=== PATIENT | male | born 1940 | race Caucasian/White ===

== ENCOUNTER → 2017-04-03 | Outpatient (CLI) | payer OTHER ==
[~2017-04-03] MED LIST: ASPI81CH PO; ATOR80 PO; CEPH500 PO; CHOL10002 PO; Catapres0.1 MG PO; Cephalexin500 MG PO; DIPATR PO; Dazidox10 MG; FISH1000 PO; FLUSAL2505 INH; Ginkgo Biloba60 M1 PO; ISOMON20 PO; LISI20 PO; Lomotil Tablet1 EACH PO; MELO7.5 PO; METO50ER PO; METO5A PO; NEBI10 PO; NITR.4SL SL; Neurontin 100100 MG PO; OXYC10TA19 PO; Omeprazole20 M1 PO; PROM25 PO; RANO500T PO; Vitamin B-121000 MCG PO; XARELTO15 MG PO
== END ==
LOC: LAB SRC 09:56
DX: R30.0 Dysuria (principal); R31.9 Hematuria, unspecified
CPT/HCPCS: 87086

== ENCOUNTER → 2017-12-10 | Outpatient (CLI) | payer OTHER | END | disposition home or self-care (01) | LOC: PLD 13:52 → LAB SHORT 13:52 | DX: D22.4 Melanocytic nevi of scalp and neck (principal) | CPT/HCPCS: 88305 ==

== ENCOUNTER → 2018-06-13 | Outpatient (CLI) | payer OTHER ==
[~2018-06-13] MED LIST changes: +Kristalose20 GM PO
== END | disposition home or self-care (01) ==
LOC: LAB SHORT 15:28 → LAB 15:28
DX: Z20.89 Contact with and (suspected) exposure to other communicable diseases (principal)
CPT/HCPCS: 87493

== ENCOUNTER 2018-11-20 16:31 | Emergency (ER) | payer OTHER ==
[~2018-11-20] VITALS: Ht 177.8 cm; Wt 110.7 kg
== END 2018-11-20 18:21 | disposition left against medical advice (07) ==
LOC: ER 16:31
DX: Z53.21 Procedure and treatment not carried out due to patient leaving prior to being seen by health care provider (principal)
CPT/HCPCS: 70450

== ENCOUNTER 2019-02-26 09:04 | Day surgery (SDC) | payer OTHER ==
--- NOTE | 2019-02-26 10:43 | NUR ---
PT TO STEP FROM RADIOLOGY. DENIES SOB. LUNG SOUNDS CLEAR. BAND AID TO BIOPSY SITE D/I. C/O INTERNAL PAIN FROM BIOPSY, PAIN LEVEL 5/10. PT STATES WAS TOLD BY RADIOLOGIST THAT HE COULD TAKE HOME PAIN MEDS AND DID SO. STATES HE TAKE IT FOR BACK PAIN. AT BEDSIDE.
--- NOTE | 2019-02-26 11:04 | NUR ---
NO CHANGE IN BIOPSY SITE. STATES PAIN IMPROVING. REPORT TO DIDIER MONTES RN.
--- NOTE | 2019-02-26 11:43 | NUR ---
RESUMED CARE OF PT. BAND AID D/I. DENIES SOB.
--- NOTE | 2019-02-26 12:00 | NUR ---
WRITTEN AND VERBAL D/C INSTRUCTIONS GIVEN TO PT WITH STATED UNDERSTANDING.
--- NOTE | 2019-02-26 12:23 | NUR ---
TO RADIOLOGY FOR CXR.
== END 2019-02-26 23:03 | disposition home or self-care (01) ==
LOC: CT 09:04
DX: C34.92 Malignant neoplasm of unspecified part of left bronchus or lung (principal); I25.10 Atherosclerotic heart disease of native coronary artery without angina pectoris; E78.00 Pure hypercholesterolemia, unspecified; I10 Essential (primary) hypertension; E66.9 Obesity, unspecified; Z68.34 Body mass index [BMI] 34.0-34.9, adult; Z87.891 Personal history of nicotine dependence; Z86.711 Personal history of pulmonary embolism; Z79.01 Long term (current) use of anticoagulants; Z79.82 Long term (current) use of aspirin; Z79.899 Other long term (current) drug therapy; Z95.1 Presence of aortocoronary bypass graft
CPT/HCPCS: 32405; 71045; 77012; 88305; 88341; 88342

== ENCOUNTER 2019-04-09 13:06 | Emergency (ER) | payer OTHER ==
[~2019-04-09] VITALS: Ht 188 cm; Wt 105.2 kg
== END 2019-04-09 17:37 | disposition home or self-care (01) ==
LOC: ER 13:06
DX: S61.300A Unspecified open wound of right index finger with damage to nail, initial encounter (principal); S00.531A Contusion of lip, initial encounter; W01.198A Fall on same level from slipping, tripping and stumbling with subsequent striking against other object, initial encounter; Z79.899 Other long term (current) drug therapy; Z79.891 Long term (current) use of opiate analgesic; Z79.82 Long term (current) use of aspirin; I10 Essential (primary) hypertension; I25.10 Atherosclerotic heart disease of native coronary artery without angina pectoris; Z87.891 Personal history of nicotine dependence; Z85.118 Personal history of other malignant neoplasm of bronchus and lung
CPT/HCPCS: 29130; 70450; 71101; 99284-25

== ENCOUNTER 2019-08-17 16:39 | Inpatient (IN) | payer OTHER ==
[~2019-08-17] VITALS: Ht 177.8 cm; Wt 107.1 kg
[~2019-08-17 16:39] MED LIST changes: -ASPI81CH PO; +Aspirin EC81 MG PO; -FISH1000 PO; +Fish Oil Conc1000 MG PO; -XARELTO15 MG PO; +XARELTO20 MG PO
[2019-08-17 18:22] LABS: BASOPHILS ABSOLUTE AUTO 0.04 K/mm3 (0.00-0.23); BASOPHILS PERCENT AUTO 1 % (0-2); EOSINOPHILS ABSOLUTE AUTO 0.35 K/mm3 (0.00-0.68); EOSINOPHILS PERCENT AUTO 5 % (0-6); Hematocrit 38.3 % (37.0-53.0); Hemoglobin 12.5 g/dL (13.5-17.5); IMMATURE GRAN ABSOLUTE AUTO 0.02 K/mm3 (0.00-0.10); IMMATURE GRAN PERCENT AUTO 0 % (0-1); LYMPHOCYTES ABSOLUTE AUTO 1.53 K/mm3 (0.84-5.20); LYMPHOCYTES PERCENT AUTO 22 % (21-46); MONOCYTES ABSOLUTE AUTO 0.53 K/mm3 (0.16-1.47); MONOCYTES PERCENT AUTO 8 % (4-13); Mean Corpuscular HGB 32.9 pg (26.0-34.0); Mean Corpuscular HGB Conc 32.6 g/dL (31.5-36.5); Mean Corpuscular Volume 101 fL (80-100); Mean Platelet Volume 10.6 fL (9.1-12.4); NEUTROPHILS ABSOLUTE AUTO 4.41 K/mm3 (1.96-9.15); NEUTROPHILS PERCENT AUTO 64 % (41-73); Platelet Count 167 K/mm3 (150-400); RDW Coefficient Variation 12.9 % (11.7-14.2); RDW Standard Deviation 47.4 fL (35.1-46.3); White Blood Cell Count 6.88 K/mm3 (4.00-11.30)
[2019-08-17 18:31] LABS: Anion Gap 8 mmol/L (6-16); Blood Urea Nitrogen 16 mg/dL (8-24); Bun/Creatinine Ratio 13.9 (12.0-20.0); CO2, Blood 22 mmol/L (21-32); Calcium, Blood 8.6 mg/dL (8.5-10.1); Chloride, Blood 111 mmol/L (98-108); Creatinine, Blood 1.15 mg/dL (0.60-1.20); Glomerular Filtration Rate >60 (60-); Glucose, Blood 97 mg/dL (70-99); Potassium, Blood 4.3 mmol/L (3.5-5.5); Sodium, Blood 141 mmol/L (136-145)
[2019-08-17] MEDS ORDERED: TOPI50 PO (22:28)
[2019-08-17] MEDS ORDERED: METO50ER PO (22:29)
[2019-08-17] MEDS ORDERED: Cymbalta20 MG PT (22:29)
[2019-08-17] MEDS ORDERED: METO10 PO (22:30)
[2019-08-18 04:20] LABS: BASOPHILS ABSOLUTE AUTO 0.03 K/mm3 (0.00-0.23); BASOPHILS PERCENT AUTO 0 % (0-2); EOSINOPHILS ABSOLUTE AUTO 0.11 K/mm3 (0.00-0.68); EOSINOPHILS PERCENT AUTO 2 % (0-6); Hematocrit 35.7 % (37.0-53.0); Hemoglobin 11.9 g/dL (13.5-17.5); IMMATURE GRAN ABSOLUTE AUTO 0.02 K/mm3 (0.00-0.10); IMMATURE GRAN PERCENT AUTO 0 % (0-1); LYMPHOCYTES ABSOLUTE AUTO 1.19 K/mm3 (0.84-5.20); LYMPHOCYTES PERCENT AUTO 16 % (21-46); MONOCYTES ABSOLUTE AUTO 0.64 K/mm3 (0.16-1.47); MONOCYTES PERCENT AUTO 8 % (4-13); Mean Corpuscular HGB 33.1 pg (26.0-34.0); Mean Corpuscular HGB Conc 33.3 g/dL (31.5-36.5); Mean Corpuscular Volume 99 fL (80-100); Mean Platelet Volume 9.8 fL (9.1-12.4); NEUTROPHILS ABSOLUTE AUTO 5.59 K/mm3 (1.96-9.15); NEUTROPHILS PERCENT AUTO 74 % (41-73); Platelet Count 137 K/mm3 (150-400); RDW Coefficient Variation 12.7 % (11.7-14.2); RDW Standard Deviation 46.5 fL (35.1-46.3); White Blood Cell Count 7.58 K/mm3 (4.00-11.30)
[2019-08-18 04:34] LABS: International Normalized Ratio 1.16; Prothrombin Time Results 12.3 Sec (9.7-11.5)
[2019-08-18 04:39] LABS: Alanine Aminotransfer (ALT/SGP 19 U/L (12-78); Albumin, Blood 3.1 g/dL (3.4-5.0); Albumin/Globulin Ratio 0.9 (0.8-1.8); Alk Phos 82 U/L (50-136); Anion Gap 6 mmol/L (6-16); Aspartate Aminotrans (AST/SGOT 23 U/L (12-37); Bilirubin, Total 0.7 mg/dL (0.1-1.0); Blood Urea Nitrogen 19 mg/dL (8-24); CO2, Blood 24 mmol/L (21-32); Calcium, Blood 8.2 mg/dL (8.5-10.1); Chloride, Blood 111 mmol/L (98-108); Globulin, Blood 3.3 g/dL (2.2-4.0); Glomerular Filtration Rate >60 (60-); Glucose, Blood 105 mg/dL (70-99); Magnesium, Blood 2.2 mg/dL (1.6-2.4); Sodium, Blood 141 mmol/L (136-145); Total Protein, Blood 6.4 g/dL (6.4-8.2)
--- NOTE | 2019-08-18 05:00 | NUR ---
SHIFT SUMMARY: PATIENT ARRIVED TO PCU 14 AT APPROX 2200 VIA GURNEY FROM ER. REPROT RECIEVED FROM VIOLET HAJI. PATIENT SLIDE TRANSFER TO BED D/T RECENT FALL AND INABILITY TO SEE WELL. PATIENT LEFT EYE LEGALLY BLIND PER PATIENT AND RIGHT EYE SWOLLEN SHUT. PATIENT HAS ABRASIONS NEAR RIGHT EYEBROW AND ON RIGHT CHEEK, RIGHT SIDE OF FACE VERY SWOLLEN. RIGHT SHOULDER BRUISED AND RIGHT HAND HAS SMALL ABRASIONS. PATIENT ALERT AND ORIENTED, VSS. ADMISSION COMPLETED AND PATIENT ORIENTED TO ROOM, CALL LIGHT AND HOSPITAL POLICIES. UNABLE TO TEST PUPILARY RESPONSE IN RIGHT EYE D/T SWELLING, RIGHT ARM HAS LIMITED ROM D/T PAIN FROM FALL. RIGHT WRIST LIMITED ROM BASELINE PER PATIENT. ALL OTHER STRENGTH/PULSES/SENSATION INTACT. REPEAT CT COMPLETED AND INDICATED IMPROVEMENT THE SIZE OF THE SDH SEEMS TO BE SMALLER. ATTEMPTED TO CALL ENT CONSULT PER MD ORDERS, HOWEVER, ANSWERING SERVICE INFORMED ME THAT ENT WOULD NOT AVAILABLE FOR CONSULT UNTIL Sunday08/19/19 AND TO CALL BACK BEFORE 0600 ON 08/19/19. BED LOW AND LOCKED, CALL LIGHT WITHIN REACH AND USED APPROPRIATLY.
--- NOTE | 2019-08-18 09:55 | NUR ---
FAMILY RETURNED PT PHONE CALL. LUIS ANTONIO RELATED THAT SHE GIVES PT HIS PAIN PILLS AT HOME. SHE GAVE HIN 2 OXI BEFORE THEIR WALK. PT DOES NOT NORMALLY TAKE 2 AT ONCE. CONTINUE POT.
[2019-08-18 13:17] LABS: Hematocrit 33.4 % (37.0-53.0); Hemoglobin 10.9 g/dL (13.5-17.5)
--- NOTE | 2019-08-18 15:40 | NUR ---
TRANSFER TO 309 PT REPORT CALLED TO IRVING HAJI. PT AWAKE ALERT AND AGREEABLE TO TRANSFER. CURRENTLY HE IS TALKING TO HIS ON THE PHONE. CONTINUE POT.
--- NOTE | 2019-08-18 16:19 | NUR ---
1600 ASSUMED CARE OF PT FROM AR. REPORT GIVEN . PT CAME UP IN WC AND PUT INTO BED . NO COMPLAINTS AT THIS TIME.
[2019-08-18 16:39] LABS: Hematocrit 36.9 % (37.0-53.0); Hemoglobin 11.9 g/dL (13.5-17.5)
--- NOTE | 2019-08-18 18:00 | NUR ---
PT TRANSFERRED FROM PCU THIS SHIFT. HE IS ALERT AND ORIENTED AND ABLE TO COMMUNICATE HIS NEEDS. HE IS A ONE ASSIST TO THE COMMODE AND DUE TO THE CONDITION OF HIS HAND AND ARM HE NEEDS ASSISTANCE WITH THE URNIAL. PT HAS RESTED SINCE HIS ARRIVAL. NO ACUTE CHANGES.
--- NOTE | 2019-08-18 23:03 | NUR ---
ENT CONSULT CALLED TO ANSWERING SERVICE ON 08/18/19 AT 2301.
--- NOTE | 2019-08-19 04:31 | NUR ---
SUMMARY: PT IS A/OX4, SPECIFIES NEEDS AND INDEPENDENT IN ROOM. IVF WERE SL D/T PT EATING AND DRINKING WELL W/POSSIBLE D/C TODAY. SHE'S DENIED PAIN, SOB, ABDO DISCOMFORT AND N/V/D. DRY NAGGING COUGH PERSISTED THOUGH SO TESSALON PERLS WERE PROVIDED PRN FOR GOOD EFFECT. PT SLEPT MAJORITY OF NOCTE AND WAS ONLY UP TO USE TOILET. BREAKFAST TRAY ORDERED PER PT REQUEST. IV ABX TO BE RECIEVED ON DAY SHIFT. NO ACUTE CHANGES, VSS/AFEBRILE. WCTM AND REPORT TO DAY RN.
[2019-08-19 05:04] LABS: Hematocrit 33.3 % (37.0-53.0); Hemoglobin 11.2 g/dL (13.5-17.5)
--- NOTE | 2019-08-19 05:28 | NUR ---
SUMMARY: A/OX4, SPECIFIES NEEDS AND PLEASANT/COOPERATIVE W/CARE. PT IS BLIND IN L.EYE AND R.EYELID SWELLING IMPAIRS VISION, NATHANIEL. STAFF PLACED TELE PATCH DISTRIBUTION SUPERVISOR LIGHT TO AID EASE OF USE. HE'D PREVIOUSLY SET OFF BED ALARM D/T INABILITY TO FIND CALL LIGHT BUTTON BUT HAS HAD NO FURTHER ISSUES SINCE. HE'S 1P ASSIST TO BSC AND NEEDS URINAL ASSIST D/T R.ARM SLING. FACIAL AND R.EYE ORBITAL EDEMA, BRUISING, ABRASIONS AND DRIED BLOOD PERSIST POST FALL. ENT CX WAS CALLED TO 'S ANSWERING SERVICE FOR MAXILLARY FX AND DISPLACEMENT. HGB/HCT ARE STABLE BUT HAVE DECREASED SLIGHTLY THIS AM. NO S/S ACTIVE BLEEDING AND PT DENIES DELUNA AND DIZZYNESS. TRAMADOL RECIEVED X1 PRN FOR TOLERABLE CONTROL OF FACE, RIB AND R.ARM PAIN. HE'S NSR W/1ST DEGREE BLOCK ON TELEMETRY. NO ACUTE CHANGS, VSS/AFEBRILE. WCTM AND REPORT TO DAY RN.
--- NOTE | 2019-08-19 17:53 | NUR ---
NO ACUTE CHANGES. PTS RIGHT EYE HAS DECREASED IN SWELLING AND HE IS ABLE TO LOOK OUT OF IT. PAIN HAS BEEN CONTROLLED WELL THIS SHIFT.
--- NOTE | 2019-08-20 04:46 | NUR ---
SHIFT SUMMARY PT HAS HAD NO ACUTE CHANGES THIS SHIFT, A&O, PLEASANT & COOPERATIVE W/CARE, MEDICATED FOR RUE PAIN 2X THIS SHIFT, PT REPORTED ULTRAM NOT EFFECTIVE, PT SLEEPING AT THIS TIME, CALL LIGHT IN REACH, ALL NEEDS MET, WILL CONT TO MONITOR UNTIL REPORT GIVEN TO DAY RN.
[2019-08-20] MEDS ORDERED: ACET325 PO (14:59)
[2019-08-20] MEDS ORDERED: TRAM50 PO (15:00)
--- NOTE | 2019-08-20 15:45 | NUR ---
PT DISCHARGED THE PT AND HIS VERBALIZED UNDERSTANDING OF THE DC INSTRUCTIONS, PTS FOLLOW UP APPOINTMENTS WERE MADE PRIOR TO DC, THE PT WAS GIVEN A PRESCRIPTION FOR TRAMADOL, PT WAS GIVEN INSTRUCTIONS TO DISTILLATION OPERATOR FWW ATTATCHMENT AT [facility], THE PT WAS TRANSFERD VIA WHEELCHAIR ACCOMPANIED BY THE SN RAINEY, PT APPEARED TO BE BREATING EASILY ON RA AT THE TIME OF DC
--- NOTE | 2019-08-20 15:55 | NUR ---
STUDENT NURSE ASSESMENT THIS RN WAS PRESENT DURING THE STUDENTS AM SHIFT ASSESSMENT AND AGREE WITH THAT ASSSESSMENT
== END 2019-08-20 15:27 | disposition home health service (06) | DRG 83 ==
LOC: ER 16:39 → PCU 16:40 → MEDS 16:40 → PCU 21:41 → MEDS 08-18 15:49
PROVIDERS: Internal Medicine; Nurse Practitioner Acute Care; Student in an Organized Health Care Education/Training Program; ADMIT Internal Medicine
DX: S06.5X9A Traumatic subdural hemorrhage with loss of consciousness of unspecified duration, initial encounter (principal); S52.201A Unspecified fracture of shaft of right ulna, initial encounter for closed fracture; S52.501A Unspecified fracture of the lower end of right radius, initial encounter for closed fracture; W18.30XA Fall on same level, unspecified, initial encounter; I25.2 Old myocardial infarction; I25.10 Atherosclerotic heart disease of native coronary artery without angina pectoris; I10 Essential (primary) hypertension; Z85.118 Personal history of other malignant neoplasm of bronchus and lung; Z95.1 Presence of aortocoronary bypass graft; F32.9 Major depressive disorder, single episode, unspecified; M19.90 Unspecified osteoarthritis, unspecified site; Z87.891 Personal history of nicotine dependence; Z79.82 Long term (current) use of aspirin; Z94.5 Skin transplant status; Z86.711 Personal history of pulmonary embolism; J44.9 Chronic obstructive pulmonary disease, unspecified; Y92.9 Unspecified place or not applicable; S02.40CA Maxillary fracture, right side, initial encounter for closed fracture; G89.29 Other chronic pain; E78.00 Pure hypercholesterolemia, unspecified; H54.7 Unspecified visual loss; S46.019A Strain of muscle(s) and tendon(s) of the rotator cuff of unspecified shoulder, initial encounter; Z79.891 Long term (current) use of opiate analgesic
CPT/HCPCS: 36415; 70450; 70486; 72125; 73030; 73110; 80048; 80053; 82947; 83735; 85014; 85018; 85025; 85610; 96365; 96375; 97110; 97112; 97116; 97162; 97166; 97530; 97535; 99285-25; A9270-GY; C9132; G0378; J1953; J2270; J3010

== ENCOUNTER 2020-02-03 06:51 | Day surgery (SDC) | payer OTHER ==
[~2020-02-03] VITALS: Ht 177.8 cm; Wt 102.2 kg
[~2020-02-03 06:51] MED LIST changes: +ACET325 PO; +Cymbalta20 MG PT; +METO10 PO; +OXYCODONE-ACET1 EAC3 PO; +PROAIR DIGIHAL90 MCG INH; +Percocet 5-3251 EACH PO; +TOPI50 PO; +TRAM50 PO; +VITAMIN D32000 UNI1 PO
--- NOTE | 2020-02-03 10:47 | NUR ---
PT R JUGULAR SITE STABLE. SALINE LOCK REMOVED WITH CATHETER INTACT, PRESSURE DRESSING APPLIED. DISCHARGE INSTRUCTIONS GONE OVER WITH , VERBALIZES UNDERSTANDING OF INSTRUCTIONS. PT TO PRIVATE VEHICLE PER W/C.
== END 2020-02-03 23:03 | disposition home or self-care (01) ==
LOC: MHTC 06:51
DX: Z45.09 Encounter for adjustment and management of other cardiac device (principal); I82.90 Acute embolism and thrombosis of unspecified vein; K21.9 Gastro-esophageal reflux disease without esophagitis; I11.0 Hypertensive heart disease with heart failure; I50.9 Heart failure, unspecified; J44.9 Chronic obstructive pulmonary disease, unspecified; E78.00 Pure hypercholesterolemia, unspecified; Z87.891 Personal history of nicotine dependence; Z79.899 Other long term (current) drug therapy; I26.99 Other pulmonary embolism without acute cor pulmonale; C34.12 Malignant neoplasm of upper lobe, left bronchus or lung
CPT/HCPCS: 37193; 76937; 99152; C1769; C1773; C1894; J1644; J2250; J3010; J7040; Q9967

== ENCOUNTER 2020-07-06 18:02 | Emergency (ER) | payer OTHER ==
[~2020-07-06] VITALS: Ht 170.2 cm; Wt 108.9 kg
== END 2020-07-06 22:28 | disposition home or self-care (01) ==
LOC: ER 18:02
DX: S42.201A Unspecified fracture of upper end of right humerus, initial encounter for closed fracture (principal); S09.90XA Unspecified injury of head, initial encounter; K21.9 Gastro-esophageal reflux disease without esophagitis; I10 Essential (primary) hypertension; E78.00 Pure hypercholesterolemia, unspecified; J44.9 Chronic obstructive pulmonary disease, unspecified; I25.10 Atherosclerotic heart disease of native coronary artery without angina pectoris; Z79.01 Long term (current) use of anticoagulants; Z79.899 Other long term (current) drug therapy; Z87.891 Personal history of nicotine dependence; W01.10XA Fall on same level from slipping, tripping and stumbling with subsequent striking against unspecified object, initial encounter
CPT/HCPCS: 70450; 71250; 72125; 73060; 73090; 90471; 90714; 96374; 96375; 99284-25; J2270; J2405

== ENCOUNTER 2020-08-05 18:02 | Observation (INO) | payer OTHER ==
[~2020-08-05] VITALS: Ht 175.3 cm; Wt 100.4 kg
[~2020-08-05 18:02] MED LIST changes: +Colace250 MG PO; +Hydrocodone-Ap1 EA26 PO
[2020-08-05 18:31] LABS: BASOPHILS ABSOLUTE AUTO 0.05 K/mm3 (0.00-0.23); BASOPHILS PERCENT AUTO 1 % (0-2); EOSINOPHILS ABSOLUTE AUTO 0.39 K/mm3 (0.00-0.68); EOSINOPHILS PERCENT AUTO 4 % (0-6); Hematocrit 30.7 % (37.0-53.0); Hemoglobin 9.5 g/dL (13.5-17.5); IMMATURE GRAN ABSOLUTE AUTO 0.04 K/mm3 (0.00-0.10); IMMATURE GRAN PERCENT AUTO 0 % (0-1); LYMPHOCYTES ABSOLUTE AUTO 1.96 K/mm3 (0.84-5.20); LYMPHOCYTES PERCENT AUTO 21 % (21-46); MONOCYTES ABSOLUTE AUTO 0.79 K/mm3 (0.16-1.47); MONOCYTES PERCENT AUTO 8 % (4-13); Mean Corpuscular HGB 30.7 pg (26.0-34.0); Mean Corpuscular HGB Conc 30.9 g/dL (31.5-36.5); Mean Corpuscular Volume 99 fL (80-100); Mean Platelet Volume 9.2 fL (9.1-12.4); NEUTROPHILS ABSOLUTE AUTO 6.28 K/mm3 (1.96-9.15); NEUTROPHILS PERCENT AUTO 66 % (41-73); Platelet Count 245 K/mm3 (150-400); RDW Coefficient Variation 14.7 % (11.7-14.2); RDW Standard Deviation 53.2 fL (35.1-46.3); Red Blood Cell Count 3.09 M/mm3 (4.30-5.90); White Blood Cell Count 9.51 K/mm3 (4.00-11.30)
[2020-08-05 19:10] LABS: Alanine Aminotransfer (ALT/SGP 15 U/L (12-78); Albumin, Blood 2.6 g/dL (3.4-5.0); Albumin/Globulin Ratio 0.7 (0.8-1.8); Alk Phos 103 U/L (50-136); Anion Gap 5 mmol/L (6-16); Aspartate Aminotrans (AST/SGOT 18 U/L (12-37); Bilirubin, Total 0.4 mg/dL (0.1-1.0); Blood Urea Nitrogen 26 mg/dL (8-24); Bun/Creatinine Ratio 24.8 (12.0-20.0); CO2, Blood 23 mmol/L (21-32); Calcium, Blood 8.2 mg/dL (8.5-10.1); Chloride, Blood 112 mmol/L (98-108); Creatinine, Blood 1.05 mg/dL (0.60-1.20); Globulin, Blood 3.6 g/dL (2.2-4.0); Glomerular Filtration Rate >60 (60-); Glucose, Blood 86 mg/dL (70-99); Sodium, Blood 140 mmol/L (136-145); Total Protein, Blood 6.2 g/dL (6.4-8.2)
[2020-08-05 19:11] LABS: Source, Urine Catheter
[2020-08-05 19:13] LABS: Appearance, Urine Clear (Clear); Bilirubin, Urine Neg (Neg); Blood, Urine 5+ (Neg); Color, Urine Yellow (P-Yellow); Glucose Qualitative, Urine Neg (Neg); Ketones, Urine Neg (Neg); Leukocyte Esterase, Urine 1+ (Neg); Nitrite, Urine Neg (Neg); Protein, Urine 3+ (Neg); Specific Gravity, Urine 1.015 (1.003-1.022); Urobilinogen, Urine NORM (Normal)
[2020-08-05 19:19] LABS: Bacteria Many /hpf; Red Blood Cells, Urine 50-100 /hpf (0-2); Renal Epithelial Few /hpf (0-Rare); Squamous Epithelial Cells Not Seen /hpf (Few)
[2020-08-05] MEDS ORDERED: FENTANYL1 EA20 TD (21:19)
[2020-08-05] MEDS ORDERED: FENTANYL1 EA10 TOP (21:19)
[2020-08-05] MEDS ORDERED: MORP20L PO (21:20)
[2020-08-05] MEDS ORDERED: OXYCODONE-ACET1 EAC3 PO (21:21)
[2020-08-05] MEDS ORDERED: XARELTO20 M1 PO (21:21)
[2020-08-05] MEDS ORDERED: LIPITOR80 MG PO (21:22)
[2020-08-05] MEDS ORDERED: TOPI50 PO (21:22)
[2020-08-05] MEDS ORDERED: RANOLAZINE ER1000 M1 PO (21:22)
[2020-08-05] MEDS ORDERED: NARCAN4 M1 (21:22)
[2020-08-05] MEDS ORDERED: CYMBALTA20 M2 PO (21:23)
[2020-08-05] MEDS ORDERED: METO50ER PO (21:23)
[2020-08-05] MEDS ORDERED: METO5A PO (21:24)
[2020-08-05] MEDS ORDERED: ISOSORBIDE MONO30 MG PO (21:24)
[2020-08-05 22:11] LABS: Ferritin, Serum 124 ng/mL (26-388); Iron Serum 55 ug/dL (65-175); Percent Saturation 18.8 % (20.0-50.0); Total Iron Binding Capacity 293 ug/dL (250-450)
[2020-08-06] MEDS ORDERED: FENTANYL1 EA20 TD (04:43)
[2020-08-06 04:44] LABS: Source, Urine Catheter
[2020-08-06] MEDS ORDERED: FENTANYL1 EA10 TOP (04:44)
[2020-08-06 04:46] LABS: Bilirubin, Urine Neg (Neg); Blood, Urine 5+ (Neg); Glucose Qualitative, Urine Neg (Neg); Ketones, Urine Neg (Neg); Leukocyte Esterase, Urine 1+ (Neg); Nitrite, Urine Neg (Neg); Protein, Urine 2+ (Neg); Urobilinogen, Urine NORM (Normal)
[2020-08-06 04:51] LABS: Appearance, Urine Hazy (Clear); Color, Urine Amber (P-Yellow)
[2020-08-06 04:52] LABS: Bacteria Mod /hpf; Red Blood Cells, Urine TNTC /hpf (0-2); Squamous Epithelial Cells Not Seen /hpf (Few)
[2020-08-06 04:53] LABS: Hyaline Casts 0-2 /lpf (0-2)
--- NOTE | 2020-08-06 06:34 | NUR ---
SHIFT SUMMARY PT WAS A NEW ADMIT DURING THE NIGHT, ARRIVING ON THE FLOOR AT 0025. HE IS A&O X 2, BEDREST, WITH A RUE HUMERUS FX FROM A PREVIOUS FALL AT HOME. PT WAS ADMITTED FOR AMS AFTER PT'S DAUGHTER FOUND HIM VERY LETHARGIC. PT STATED HIS PAIN WAS AT A CONSTANT 4/10, DENIED THE NEED FOR PAIN MEDS. NO C/O NAUSEA. PT WAS PLACED ON 2L OF O2 VIA NC D/T HIS SATS COMING DOWN TO 87%. VITAL SIGNS OTHERWISE STABLE. PT RECEIVING LR @ 125 ML/HR. NO OTHER ACUTE CHANGES IN PT CONDITION NOTED SINCE ADMISSION. WILL CONTINUE TO MONITOR AND TREAT PER EMAR UNTIL HAND OFF TO DAY SHIFT RN.
--- NOTE | 2020-08-06 17:50 | NUR ---
PATIENT IS ALERT AND ORIENTED AND COOPERATIVE WITH CARE. HE WORKED WITH PHYSICAL THERAPY THIS MORNING. OCCUPATIONAL THERAPY WANTS TO WAIT TO SEE HIM. SHOULDER XRAY WAS TAKEN THIS AFTERNOON. THE PATIENT IS BEDREST. CHRONIC GUERRERO IS IN PLACE. 3 LARGE BMS TODAY. PATIENT VERIFIED THAT HE DOES LIVE ALONE. WILL CONTINUE TO MONITOR
[2020-08-07 04:55] LABS: BASOPHILS ABSOLUTE AUTO 0.02 K/mm3 (0.00-0.23); BASOPHILS PERCENT AUTO 0 % (0-2); EOSINOPHILS ABSOLUTE AUTO 0.36 K/mm3 (0.00-0.68); EOSINOPHILS PERCENT AUTO 5 % (0-6); Hematocrit 32.1 % (37.0-53.0); Hemoglobin 10.2 g/dL (13.5-17.5); IMMATURE GRAN ABSOLUTE AUTO 0.03 K/mm3 (0.00-0.10); IMMATURE GRAN PERCENT AUTO 0 % (0-1); LYMPHOCYTES ABSOLUTE AUTO 1.75 K/mm3 (0.84-5.20); LYMPHOCYTES PERCENT AUTO 24 % (21-46); MONOCYTES ABSOLUTE AUTO 0.56 K/mm3 (0.16-1.47); MONOCYTES PERCENT AUTO 8 % (4-13); Mean Corpuscular HGB 30.9 pg (26.0-34.0); Mean Corpuscular HGB Conc 31.8 g/dL (31.5-36.5); Mean Corpuscular Volume 97 fL (80-100); Mean Platelet Volume 9.4 fL (9.1-12.4); NEUTROPHILS ABSOLUTE AUTO 4.45 K/mm3 (1.96-9.15); NEUTROPHILS PERCENT AUTO 62 % (41-73); Platelet Count 229 K/mm3 (150-400); RDW Coefficient Variation 14.9 % (11.7-14.2); RDW Standard Deviation 52.3 fL (35.1-46.3); White Blood Cell Count 7.17 K/mm3 (4.00-11.30)
[2020-08-07 05:34] LABS: Anion Gap 5 mmol/L (6-16); Blood Urea Nitrogen 20 mg/dL (8-24); Bun/Creatinine Ratio 19.4 (12.0-20.0); CO2, Blood 24 mmol/L (21-32); Calcium, Blood 8.2 mg/dL (8.5-10.1); Chloride, Blood 112 mmol/L (98-108); Creatinine, Blood 1.03 mg/dL (0.60-1.20); Glomerular Filtration Rate >60 (60-); Glucose, Blood 97 mg/dL (70-99); Potassium, Blood 3.8 mmol/L (3.5-5.5); Sodium, Blood 141 mmol/L (136-145)
--- NOTE | 2020-08-07 06:06 | NUR ---
SHIFT SUMMARY PT IS AN 80 Y/O MALE, ADMITTED FOR ACUTE METABOLIC ENCEPHALOPATHY. HE IS A&O X 2, BEDREST. GUERRERO IN PLACE, PATENT AND DRAINING DARK YELLOW URINE. PT WAS MEDICATED TWICE FOR RUE PAIN WITH PRN PERCOCET. NO C/O NAUSEA OR SOB. VITAL SIGNS STABLE. PT RECIEVED LR @ 125 THROUGH THE NIGHT, FINISHING THIS AM AT 0630. NO OTHER ACUTE CHANGES IN PT CONDITION NOTED DURING THE NIGHT. WILL CONTINUE TO MONITOR AND TREAT PER EMAR UNTIL HAND OFF TO DAY SHIFT RN.
--- NOTE | 2020-08-07 15:13 | NUR ---
PATIENT IS ALERT AND ORIENTED WITH SOME FORGETFULNESS. VITALS ARE STABLE. PATIENT PLEASANT AND COOPERATIVE WITH STAFF; WORKING WITH THERAPY AT THIS TIME. NO ACUTE CHANGES TO REPORT OF AT THIS TIME. CALL LIGHT WITHIN REACH.
--- NOTE | 2020-08-08 04:32 | NUR ---
SUMMARY PT TX FOR PAIN PER EMAR. PT HAS RESTED WELL T/O SHIFT. PT CURRENTLY SLEEPING IN NO DISTRESS. CALL LIGHT IN REACH AND BED ALARM ON.
--- NOTE | 2020-08-08 12:00 | NUR ---
Initial palliative care consult: Sumeet is an 80 year old with a history of CAD, GERD, HTN, CHF, OA, COPD, hyperlipidemia, PE, OR and lung cancer. He was amitted to [facility] on 08/05/20 for increasing weakness and confusion. He tripped on a curb and fell about one month ago and broke his right humerus. He reports that his live in girl friend also fell and broke her right arm recently and has moved in with one of her children while she heals. He has been living alone recently and has found it very difficult to care for himself. He reports that he wasn't able to get out of bed to feed himself or use the bathroom. He states that he has one dtr who lives in [place]. He states that she is unable to help care for him as she has a job and has health challenges herself. He states that he has lived in this area for 80 years and moving closer to his dtr is not something he wishes to consider. He wants to go home at discharge, however he tells me that he plans to go to rehab for short term when he discharges from the hospital. He states that ultimate goal is for he and his girl friend to continue to live together once they are both healed from their broken arms. He reports that she is 86 years old and her health is good. Damon reports 4/10 pain to his right humerous fracture. He states he also has some leg and back pain due to arthritis and his fall. He states working with PT yesterday was difficult. Talked about pre-medicating pt for therapy and he is interested in doing this. He reports a decrease in appetite "I'm just not hungry." Discussed nutritional needs to assist with bone healing. He reports that he used to weigh about 275-280 pounds before his lung cancer tx about a year ago. Since that time he weighs about 220 lb. He reports he had radiation for his lung cancer. He states it was caught at an earlier stage and no other treatments were necessary. He has periodic testing for his lung cancer now. No c/o N/V, dizziness or CP. He reports being very weak and tired. Discussed code status. He states that he thinks he has a POLST form at home. He is not interested in filling out another POLST at this time but does confirm that he wishes to be a DNR/DNI with limited interventions. Offered that if he changes his mind about filling out a new POLST that the PC nurses could assist with this. He states that he has talked with his dtr about what his wishes are for medical care. He doesn't have an AD. LM for Dr. Mario re: pt's wish to be DNR/DNI. PC to follow for symptom management and advanced care planning as needed. Updated nurse who was covering for pt's nurse who was at lunch during the time of this visit.
--- NOTE | 2020-08-08 15:13 | NUR ---
PATIENT CONTINUES TO BE ALERT AND ORIENTED; SLOW TO RESPOND. PAIN TO BLE AND BUE, MEDICATED PATIENT WITH PERCOCET WITH EFFECTIVENESS THIS MORNING. PATIENT CONTINUES ON IV ABX WITHOUT S/SX OF ADVERSE REACTIONS NOTED OR REPORTED. VITALS HAVE BEEN STABLE. NO ACUTE CHANGES TO REPORT OF AT THIS TIME. PATIENT WITH VISITOR AT BEDSIDE AT THIS TIME. CALL LIGHT IS WITHIN REACH.
--- NOTE | 2020-08-09 06:26 | NUR ---
SUMMARY NO NEW ISSUES NOTED. PT DISCOMFORT TX PER EMAR W/ RELIEF. PT RESTED WELL T/O SHIFT. PT HAD LITTLE PO INTAKE DURING SHIFT. FLUIDS OFFERED FREQUENTLY. PT SLEEPING IN NO DISTRESS. CALL LIGHT IN REACH. BED ALARM ON.
--- NOTE | 2020-08-09 17:39 | NUR ---
PATIENT A/OX3, FORGETFUL AT TIMES. UP TO SIDE OF BED WITH OT TODAY. TURNING Q2 HOURS. NS @ 75ML/HR INFUSING, ENCOURAGING PO INTAKE. PERCOCET GIVEN TO TREAT RUE AND BLE PAIN WITH GOOD RELIEF. GUERRERO TO GRAVITY, [place] U/O. AWAITING SNF PLACEMENT.
--- NOTE | 2020-08-10 06:08 | NUR ---
SHIFT SUMMARY NO ACUTE CHANGES THIS SHIFT, Q2 TURNS T/O THE NIGHT, MEDICATED PER MAR FOR PAIN, NO OTHER C/O ANY KIND, SLEPT T/O THE NIGHT & SLEEPING @ THIS TIME, CALL LIGHT IN REACH, WILL CONT TO MONITOR UNTIL REPORT GIVEN TO DAY RN.
--- NOTE | 2020-08-10 19:48 | NUR ---
SUMMARY- PT A/O X3. BED BOUND. ROUTINE TURNS. MEDICATED FOR CHRONIC PAIN IN LEGS AND BACK. FEEDS SELF, TOLERATING FOOD AND FLUIDS. VSS. AND SON HERE TO VISIT. NS AT 75 CONT. CHRONIC GUERRERO. REPORT TO GUZMAN HAJI.
[2020-08-11 05:32] LABS: BASOPHILS ABSOLUTE AUTO 0.04 K/mm3 (0.00-0.23); BASOPHILS PERCENT AUTO 1 % (0-2); EOSINOPHILS ABSOLUTE AUTO 0.35 K/mm3 (0.00-0.68); EOSINOPHILS PERCENT AUTO 5 % (0-6); Hematocrit 31.7 % (37.0-53.0); IMMATURE GRAN ABSOLUTE AUTO 0.02 K/mm3 (0.00-0.10); IMMATURE GRAN PERCENT AUTO 0 % (0-1); LYMPHOCYTES ABSOLUTE AUTO 1.54 K/mm3 (0.84-5.20); LYMPHOCYTES PERCENT AUTO 24 % (21-46); MONOCYTES PERCENT AUTO 8 % (4-13); Mean Corpuscular HGB 30.6 pg (26.0-34.0); Mean Corpuscular HGB Conc 31.5 g/dL (31.5-36.5); Mean Corpuscular Volume 97 fL (80-100); Mean Platelet Volume 9.6 fL (9.1-12.4); NEUTROPHILS ABSOLUTE AUTO 4.09 K/mm3 (1.96-9.15); NEUTROPHILS PERCENT AUTO 63 % (41-73); Platelet Count 172 K/mm3 (150-400); RDW Coefficient Variation 14.9 % (11.7-14.2); RDW Standard Deviation 53.3 fL (35.1-46.3); Red Blood Cell Count 3.27 M/mm3 (4.30-5.90); White Blood Cell Count 6.54 K/mm3 (4.00-11.30)
[2020-08-11 05:56] LABS: Anion Gap 6 mmol/L (6-16); Blood Urea Nitrogen 14 mg/dL (8-24); Bun/Creatinine Ratio 14.3 (12.0-20.0); CO2, Blood 22 mmol/L (21-32); Calcium, Blood 7.9 mg/dL (8.5-10.1); Chloride, Blood 114 mmol/L (98-108); Creatinine, Blood 0.98 mg/dL (0.60-1.20); Glomerular Filtration Rate >60 (60-); Glucose, Blood 99 mg/dL (70-99); Potassium, Blood 3.7 mmol/L (3.5-5.5); Sodium, Blood 142 mmol/L (136-145)
--- NOTE | 2020-08-11 06:29 | NUR ---
SHIFT SUMMARY NO ACUTE CHANGES TO REPORT THIS SHIFT. PT HAS RESTED MOST OF THE NIGHT. HE REPORTS PAIN IN HIS TAILBONE, PAIN IS RELIEVED WITH REPOSITIONING. PT LETS US KNOW WHEN HE NEEDS TO BE REPOSITIONED. VITALS ARE STABLE. GUERRERO IN PLACE PATENT AND DRAINING. PT HAS BEEN A/OX4, PLESANT AND COOPERATIVE WITH CARE.
--- NOTE | 2020-08-11 17:38 | NUR ---
SHIFT SUMMARY PT IS AO. PT MEDICATED X1 FOR PAIN. PT DENIES N/V, SOB. PT WORKED WITH PT/OT TODAY. PT APPETITE IS MODERATE. PT HAD VISITOR THIS MARICRUZ. NO PROCEDURES DONE THIS SHIFT. PT IS IN BED, CALL LIGHT IN REACH, BED IN LOW POSITION.
--- NOTE | 2020-08-12 05:43 | NUR ---
SHIFT SUMMARY PATIENT ALERT AND ORIENTED X3. MEDICATED PER EMAR FOR PAIN. NO COMPLAINTS OF CHEST PAIN OR SHORTNESS OF BREATH. PATIENT SLEPT WELL AND HAD MINIMAL NEEDS OVERNIGHT. NO ACUTE ISSUES NOTED. IV PATENT AND INFUSING. BED IN LOWEST POSITION WITH WHEELS MYRON AND ALARM ON. CALL LIGHT WITHIN REACH. REPORT GIVEN TO ONCOMING RN.
--- NOTE | 2020-08-12 16:46 | NUR ---
SHIFT SUMMARY PT IS AOX3 AND PLEASANT. PT DENIES PAIN, N/V, SOB. PT WORKED WITH PT/OT TODAY. PT APPETITE IS POOR TODAY WITH MINIMAL INTAKE. PT HAS NOT HAD VISITORS THIS MARICRUZ. PT'S GUERRERO REMOVED PER ORDERS AT 1400. PENDING POST-REMOVAL VOID. PT IS IN BED, CALL LIGHT IN REACH, BED IN LOW POSITION.
--- NOTE | 2020-08-13 06:45 | NUR ---
SHIFT SUMMARY PATIENT ALERT AND ORIENTED X3. MEDICATED ONCE PER EMAR FOR PAIN. PATIENT SLEPT WELL AND HAD MINIMAL NEEDS. NO ACUTE ISSUES NOTED OVERNIGHT. IV PATENT AND FLUSHED. BED IN LOWEST POSITION WITH WHEELS LOCKED AND ALARM ON. CALL LIGHT WITHIN REACH. REPORT GIVEN TO CHANTELL HAJI.
--- NOTE | 2020-08-14 03:46 | NUR ---
SHIFT SUMMARY: VSS. AFEB. AAOX3. ABLE TO COMMUNICATE NEEDS APPOPRIATELY. MEDICATED FOR R SHOULDER AND BLE PAIN X 1 SO FAR TONIGHT. PT HAS BEEN SLEEPING INTERMITTENTLY. PLEASANT AND COOPERATIVE W/ CARES. DEMONSTRATES R ARM WEAKNESS W/ VERY LIMITED ROM. GENERALIZED WEAKNESS. BEDREST. NEEDS 2 ASSIST W/ BED MOBILITY. NO ACUTE OVERNIGHT EVENTS. WCTM.
--- NOTE | 2020-08-14 18:36 | NUR ---
SHIFT SUMMARY PT AXO, PLEASANT AND COOPERATIVE WITH CARE THOUGH SLOW TO RESPOND AT TIMES. PT MEDICATED PER EMAR X1 THIS SHIFT. VSS. PT HAD COMPLETE BED BATH THIS SHIFT. PATIENT WORKED WITH PHYSICAL THERAPY, SEE NOTE. PT UP TO CHAIR WITH A LIFT X1 THIS SHIFT. NO OTHER CHANGES THIS SHIFT. BED IN LOW POSITION, CALL LIGHT WITHIN REACH.
--- NOTE | 2020-08-15 04:25 | NUR ---
SHIFT SUMMARY: VSS. AFEB. AAOX4. COMMUNICATES NEEDS USING CALL BUTTON BUT WILL OCCASIONALLY CALL OUT. PERCOCET MANAGING BLE PAIN. LLE MORE PAINFUL THAN RLE TONIGHT. PT STATES R ARM ONLY HURTS W/ MOVEMENT. DENIES N/T. CONTINENT. BEDREST. NO ACUTE OVERNIGHT EVENTS. WCTM.
--- NOTE | 2020-08-15 07:30 | NUR ---
ASSUMED CARE: PT RESTING QUIETLY AT THIS TIME. NO ACUTE NEEDS OR CONCERNS.
--- NOTE | 2020-08-15 18:28 | NUR ---
SHIFT SUMMARY PATIENT ALERT AND ORIENTED X3. VSS THROUGH SHIFT. MEDICATED FOR PAIN PER EMAR. USED CALL LIGHT TO COMMUNICATE NEEDS WITH STAFF. STATED TO STOCKHOLDER AT CHANGE OF SHIFT THAT HE WOULD RATHER GO HOME THAN TO SNF. WILL RELAY THIS MESSAGE TO ONCOMING SHIFT. CONTINUES TO BE ON BEDREST; TURNING FREQUENTLY.
--- NOTE | 2020-08-16 04:00 | NUR ---
SHIFT SUMMARY: VSS. AFEB. AAOX4. ABLE TO COMMUNICATE NEEDS. PT DID NOT WANT TO TAKE PRN ANALGESICS TONIGHT. STATES THAT HIS LEGS ARE FEELING LESS PAINFUL. DENIES N/T. REMAINS ON BEDREST. MOSTLY CONTINENT. NO ACUTE OVERNIGHT EVENTS. WCTM.
--- NOTE | 2020-08-16 14:25 | NUR ---
SHIFT SUMMARY PT IS A&O, BUT VERY WEAK AND DECONDITIONED. MEDICATED THIS AFTERNOON FOR C/O LEG PAIN, SO HE COULD WORK WITH P/T. PER SHIFT REPORT, PT STARTED ON NEUROTIN, WHICH HE REPORTED WAS ACTUALLY MORE HELPFUL THAN PAIN MEDICATION. DIETARY HERE THIS AM TO TALK TO PT ABOUT INCREASING NUTRITION. PT DRINKING ENSURES WITH MEALS. PT HAS BEEN CONTINENT OF URINE. REPORTED LRG BM ON NOC SHIFT. DECLINED MIRALAX THIS AM, BUT DID TAKE COLACE. PLEASANT AND CO-OP. ABLE TO MAKE NEEDS KNOWN. CALL LT IN REACH.
--- NOTE | 2020-08-17 06:04 | NUR ---
MASTERCAM PROGRAMMER SUMMARY NO ACUTE CHANGES THIS SHIFT. PT AAOX3 AND COOPERATIVE WITH CARE. WITHDRAWN WITH A FLAT AFFECT FOR THE MOST PART. MEDICATED FOR PAIN AT HS WITH SCHEDULED GABAPENTIN AND PRN PERCOCET WITH GOOD PAIN RELIEF. PT ABLE TO SLEEP AFTER MEDICATION. PT REQUESTING FREQUENT REPOSITIONING BUT IS NOT ABLE TO ASSIST MUCH WITH IT HIMSELF. VSS, WILL CONTINUE TO MONITOR.
--- NOTE | 2020-08-17 17:37 | NUR ---
SHIFT SUMMARY PT RESTING QUIETLY AT START OF SHIFT. WOKE EASILY FOR CARE. ABLE TO FEED HIMSELF. C/O PAIN IN LEGS AND BACK THIS AM. MEDICATED PER EMAR. PT LATER MEDICATED IN ORDER TO WORK WITH PT/OT. PER THERAPY, PT ABLE TO STAND UP AT BS TWICE TODAY. IMPROVEMENT FROM YESTERDAY. BOWEL CARE GIVEN THIS AM, PER REQUEST. REPOSITIONED NEEDED AND FLOATED ON PILLOWS FOR COMFORT. BLE'S ELEVATED WELL. DR CORTÉS IN TO SEE PT. PT'S DAUGHTER TO BE NOTIFIED OF UPDATE. PT IS A&O, PLEASANT AND CO-OP. ABLE TO MAKE NEEDS KNOWN. VISITOR IN AGAIN TODAY. RESTING QUIETLY WATCHING TV. DENIED FURTHER NEEDS AT THIS TIME.
--- NOTE | 2020-08-18 04:01 | NUR ---
PT IS ALERT, ON BEDREST, USES URINAL AND WEARING ATTENDS FOR INCONTINENCE, MEDICATED THIS SHIFT PER EMAR FOR RIGHT SHOULDER PAIN. PLAN TO D/C TO SNF. PT IS ASLEEP AT THIS TIME WITH TV ON. REPORT GIVEN TO JENSEN HAJI.
--- NOTE | 2020-08-18 05:45 | NUR ---
SHIFT SUMMARY NO ACUTE CHANGES SINCE I ASSUMED CARE @0400 FROM TAMELA WATKINS. DENIES PAIN, N/V, SOB. CALL LIGHT IN REACH. WCTM.
--- NOTE | 2020-08-18 16:35 | NUR ---
SUMM- PT A/O X3, [place] AND SOME FORGETFULNESS. CALM AND COOPARATIVE, MOTIVATED IN REHAB AND WANTS TO DO ALL HE CAN TO GAIN STRENGTH AND WORK WITH PT/OT AND STAFF. SAT UP AT THE EDGE OF THE BED FOR LUNCH AND SITS 90 IN BED WHILE ON BACK. TURNED TO SIDE ROUTINE Q2. TOLERATING FOOD AND FLUID. USES URINAL AND BEDPAN, OCC INCONT. PERCOCET CONTROLLS PAIN AND GIVEN BEFORE THERAPY TO AID IN MOBILITY. VSS. WILL REPORT TO NOCS.
--- NOTE | 2020-08-19 04:21 | NUR ---
SHIFT SUMMARY: VSS.AFEB. AAOX3. ABLE TO COMMUNICATE NEEDS. REMAINS ON BEDREST. DEPRESSED STATEMENTS SURROUNDING PROLONGED STAY IN THE HOSPITAL AND WISHES TO GO HOME. MED FOR BLE PAIN AND R ARM PAIN X 1 AT HS. PT HAS SLEPT THROUGH MUCH OF THE NIGHT. MUSCLE TREMORING NOTED IN L HAND WHILE PT INTENTIONALLY RAISING ARM UP. NO ACUTE OVERNIGHT EVENTS. WCTM.
[2020-08-19 15:11] LABS: SARS-Cov-2 (COVID-19) PCR, MMC NEGATIVE (NEGATIVE)
--- NOTE | 2020-08-19 18:45 | NUR ---
SHIFT SUMMARY PT IS AOX4. PT DENIES N/V, SOB. PT MEDICATED FOR PAIN X1 THIS SHIFT. PT C/O CONSTIPATION AND WAS GIVEN ONE TIME DOSE OF LACTULOSE. PT CONTINUES TO FEEL CONSTIPATED. PT WORKED WITH BOTH PT/OT AND REMAINS LIFT STATUS FOR TRANSFERS. APPETITE HAS BEEN POOR TO MODERATE. COVID TEST PERFOMED FOR DC TO [facility] TOMORROW. PT HAD A VISITOR THIS MARICRUZ. PT IS IN BED, CALL LIGHT IN REACH, BED IN LOW POSITION.
--- NOTE | 2020-08-20 02:31 | NUR ---
LATE ENTRY FOR 08/19 @ 2230, CALL TO HOSPITALIST / CONSTIPATION PT REPORTING STOMACH CRAMPING DUE TO CONSTIPATION AND BOWEL MEDS. NEW ORDER RECEIVED FOR ENEMA X1.
--- NOTE | 2020-08-20 06:30 | NUR ---
SHIFT SUMMARY: AAOX3. AFEB. ABLE TO COMMUNICATE NEEDS. C/O ABD PAIN/CRAMPING TONIGHT DUE TO CONSTIPATION. ENEMA GIVEN W/ XXL BM RESULTING. PT SLEPT THROUGH MOST OF THE NIGHT. STATES THAT BLE PAIN IS GENERALLY IMPROVED. REMAINS ON BEDREST. CONTINENT. NO ACUTE OVERNIGHT EVENTS. WCTM.
[2020-08-20] MEDS ORDERED: SENN187 PO (11:48)
[2020-08-20] MEDS ORDERED: FLUO10 PO (11:50)
[2020-08-20] MEDS ORDERED: TAMS.4ER PO (11:50)
[2020-08-20] MEDS ORDERED: GABA100 PO (11:50)
[2020-08-20] MEDS ORDERED: MIRALAX17 GM PO (11:50)
[2020-08-20] MEDS ORDERED: CARBIDOPA-LEVO1 EA18 PO (11:51)
--- NOTE | 2020-08-20 15:38 | NUR ---
PT DISCHARGED @ APPROX 1530 VIA WHEELCHAIR TO [id number] BY [facility]. INFORMATION PACKET HANDED TO CIVIL CLERK TO PROVIDE TO SNF, RX SCRIPT IN PACKET. REPORT CALLED TO ADITHYA NUNES @ 1330. AWARE OF PT TRANSFER, HERE AT TIME OF DISCHARGE. PT STATED HE HAD ALL OF HIS BELONGINGS.
== END 2020-08-20 15:41 ==
LOC: ER 18:02 → MEDS 18:03 → ERHOLD 18:03 → MEDS 08-06 00:27 → ENPENDDIS 08-20 11:33 → MEDS 08-20 15:41
PROVIDERS: Emergency Medicine; Internal Medicine; ADMIT Internal Medicine
DX: G92 Toxic encephalopathy (principal); D50.9 Iron deficiency anemia, unspecified; N40.0 Benign prostatic hyperplasia without lower urinary tract symptoms; I95.9 Hypotension, unspecified; G20 Parkinson's disease; E86.0 Dehydration; E78.5 Hyperlipidemia, unspecified; N39.0 Urinary tract infection, site not specified; I44.0 Atrioventricular block, first degree; I11.0 Hypertensive heart disease with heart failure; I50.9 Heart failure, unspecified; J44.9 Chronic obstructive pulmonary disease, unspecified; F32.9 Major depressive disorder, single episode, unspecified; D63.8 Anemia in other chronic diseases classified elsewhere; I25.2 Old myocardial infarction; S42.211D Unspecified displaced fracture of surgical neck of right humerus, subsequent encounter for fracture with routine healing; W01.0XXD Fall on same level from slipping, tripping and stumbling without subsequent striking against object, subsequent encounter; Z95.1 Presence of aortocoronary bypass graft; Z87.891 Personal history of nicotine dependence; Z86.718 Personal history of other venous thrombosis and embolism; Z85.118 Personal history of other malignant neoplasm of bronchus and lung; Z20.822 Contact with and (suspected) exposure to COVID-19
CPT/HCPCS: 36415; 71045; 73030; 80048; 80053; 81001; 82533; 82550; 82728; 83540; 83550; 84439; 85025; 87086; 93005; 93010; 96365; 96366; 96376; 97110; 97110-CO; 97162; 97166; 97530; 97530-CO; 97535; 99285-25; A9270; G0378; J0696; J2270; J7030; J7050; J7120; U0004

== ENCOUNTER → 2022-10-16 | Outpatient (CLI) | payer OTHER ==
[~2022-10-16] MED LIST changes: +CARBIDOPA-LEVO1 EA18 PO; +CYMBALTA20 M2 PO; +FENTANYL1 EA10 TOP; +FENTANYL1 EA20 TD; +FLUO10 PO; +GABA100 PO; +ISOSORBIDE MONO30 MG PO; +LIPITOR80 MG PO; +MIRALAX17 GM PO; +MORP20L PO; +NARCAN4 M1; +RANOLAZINE ER1000 M1 PO; +SENN187 PO; +TAMS.4ER PO; +XARELTO20 M1 PO
[2022-10-16 20:15] LABS: Albumin, Blood 3.5 g/dL (3.4-5.0); Anion Gap 10 mmol/L (6-16); Blood Urea Nitrogen 21 mg/dL (8-24); Bun/Creatinine Ratio 18.3 (12.0-20.0); CO2, Blood 30 mmol/L (21-32); Calcium, Blood 8.6 mg/dL (8.5-10.1); Chloride, Blood 103 mmol/L (98-108); Creatinine, Blood 1.15 mg/dL (0.60-1.20); Glomerular Filtration Rate 63 (60-); Glucose, Blood 151 mg/dL (70-99); Phosphorus, Blood 2.5 mg/dL (2.5-4.9); Potassium, Blood 3.3 mmol/L (3.5-5.5); Sodium, Blood 143 mmol/L (136-145)
== END | disposition home or self-care (01) ==
LOC: LAB SHORT 14:05 → LAB 14:05
PROVIDERS: Internal Medicine Nephrology
DX: N18.30 Chronic kidney disease, stage 3 unspecified (principal); D63.1 Anemia in chronic kidney disease
CPT/HCPCS: 80069; 85018

== ENCOUNTER 2023-03-27 15:03 | Inpatient (IN) | payer OTHER ==
[~2023-03-27] VITALS: Ht 180.3 cm; Wt 133.8 kg
[~2023-03-27 15:03] MED LIST changes: -CARBIDOPA-LEVO1 EA18 PO; +CARBIDOPA-LEVO1 EA21 PO
[2023-03-27] MEDS ORDERED: METO5 PO (15:24)
[2023-03-27 15:25] LABS: BASOPHILS ABSOLUTE AUTO 0.03 K/mm3 (0.00-0.23); BASOPHILS PERCENT AUTO 0 % (0-2); EOSINOPHILS ABSOLUTE AUTO 0.08 K/mm3 (0.00-0.68); EOSINOPHILS PERCENT AUTO 1 % (0-6); Hematocrit 46.9 % (37.0-53.0); Hemoglobin 16.8 g/dL (13.5-17.5); IMMATURE GRAN ABSOLUTE AUTO 0.04 K/mm3 (0.00-0.10); IMMATURE GRAN PERCENT AUTO 0 % (0-1); LYMPHOCYTES ABSOLUTE AUTO 2.12 K/mm3 (0.84-5.20); LYMPHOCYTES PERCENT AUTO 24 % (21-46); MONOCYTES ABSOLUTE AUTO 1.12 K/mm3 (0.16-1.47); MONOCYTES PERCENT AUTO 13 % (4-13); Mean Corpuscular HGB 33.1 pg (26.0-34.0); Mean Corpuscular HGB Conc 35.8 g/dL (31.5-36.5); Mean Corpuscular Volume 93 fL (80-100); Mean Platelet Volume 9.9 fL (9.1-12.4); NEUTROPHILS PERCENT AUTO 62 % (41-73); Platelet Count 176 K/mm3 (150-400); RDW Coefficient Variation 13.5 % (11.7-14.2); RDW Standard Deviation 46.5 fL (35.1-46.3); Red Blood Cell Count 5.07 M/mm3 (4.30-5.90); White Blood Cell Count 8.99 K/mm3 (4.00-11.30)
[2023-03-27] MEDS ORDERED: OXYCONTIN20 M1 PO (15:25)
[2023-03-27] MEDS ORDERED: ISOSORBIDE MONO10 MG PO (15:25)
[2023-03-27] MEDS ORDERED: POTA10T PO (15:25)
[2023-03-27] MEDS ORDERED: BUME2 PO (15:26)
[2023-03-27] MEDS ORDERED: GABA400 PO (15:26)
[2023-03-27] MEDS ORDERED: CALC.25 PO (15:26)
[2023-03-27] MEDS ORDERED: ALPR.5 PO (15:26)
[2023-03-27 16:06] LABS: Albumin, Blood 3.3 g/dL (3.4-5.0); Albumin/Globulin Ratio 0.7 (0.8-1.8); Bilirubin, Total 0.9 mg/dL (0.1-1.0); Bun/Creatinine Ratio 42.2 (12.0-20.0); Calcium, Blood 9.1 mg/dL (8.5-10.1); Creatinine, Blood 1.66 mg/dL (0.60-1.20); Globulin, Blood 4.7 g/dL (2.2-4.0); Potassium, Blood 2.2 mmol/L (3.5-5.5)
[2023-03-27 16:15] LABS: Influenza A, PCR NEGATIVE (NEGATIVE); Influenza B, PCR NEGATIVE (NEGATIVE); Resp Syncytial Virus, PCR NEGATIVE (NEGATIVE)
[2023-03-27 16:16] LABS: SARS-Cov-2 (COVID-19) PCR, MMC POSITIVE (NEGATIVE)
[2023-03-27 21:56] VITALS: BP 98/60
[2023-03-28] MEDS ORDERED: OXYCODONE-ACET1 EAC2 PO (02:44)
[2023-03-28 06:16] LABS: Bun/Creatinine Ratio 39.4 (12.0-20.0); Calcium, Blood 8.5 mg/dL (8.5-10.1); Creatinine, Blood 1.42 mg/dL (0.60-1.20); Potassium, Blood 2.1 mmol/L (3.5-5.5)
[2023-03-28 08:06] VITALS: BP 120/55
--- NOTE | 2023-03-28 08:07 | NUR ---
SHIFT SUMMARY PT ARRIVED TO ROOM 343 FROM THE ER AT 2119, HE GOES BY THE NAME, ILIANA. HE IS A&OX3, OFF ON DATE. VSS ON RA. NSR @ 62 PER TELEMETRY. HE IS IN CONSTANT EXCRUCIATING PAIN MOSTLY IN HIS BACK. ACCORDING TO PT, HE IS SUPPOSE TO GO TO [place] NEXT WEEK FOR BACK SURGERY. HE IS MEDICATED PER EMAR WITH LITTLE EFFECT. PT STATES HE HAS BEEN SITTING IN A CHAIR FOR 4 DAYS STRAIGHT, UNABLE TO GET UP BECAUSE HE'S BEEN TOO WEAK AND IN TOO MUCH PAIN. HIS VICENTE AREA IS EXTREMELY EXCORIATED AND PAINFUL FOR HIM. HIS R AXILLA IS ALSO THE SAME. PT SAID HE WAS WALKING TO GET INTO [place] LAST WEEK AND LOST HIS BALANCE AND FELL INTO KITCHEN TABLE. A RESULT HE HAS A BRUISE AND SCAB ON R CHEEK, OPEN CUT IN R AXILLA, AND A WOUND ON HIS R FOREARM. HE HAS +2 EDEMA IN HIS BLE. HEELS ARE PURPLE IN COLOR AND BOGGY, PLACED PT IN HEEL PROTECTORS. PT IS INCONTINENT, BRIEF IN PLACE. UNSURE WHEN HIS LAST BM WAS, HE THINKS MAYBE 5 DAYS AGO. ABD IS MILDLY DISTENDED, FIRM, AND HYPOACTIVE BOWEL SOUNDS. INITIATED DROPLET PRECAUTIONS FOR COVID INFECTION. BED ALARM SET FOR PT'S SAFETY. BED IN LOWEST POSITION, CALL LIGHT WITHIN REACH. K OF 2.1 BEING REPLACED WITH 40 MEQ.
[2023-03-28 15:23] VITALS: BP 107/92
--- NOTE | 2023-03-28 18:51 | NUR ---
SHIFT SUMMARY PT IN EXCRUCIATING PAIN TO BACK THIS MORNING. UNABLE TO BE MOVED WITH OUT HIM CRYING OUT AND TEARS COMING TO HIS EYES. RECEIVED ORDERS TO RESUME REGULAR HOME PAIN MEDS. GIVEN AFTER BEING REPOSITIONED IN MOST COMFORTABLE POSITION. MEDS EFFECTIVE AND PT REPORTS PAIN MUCH BETTER THROUGH THE DAY AND REPORTED 3/10. EASILY REPOSITIONED WITH 1 PERSON ASSIST. HEEL PROTECTORS IN PLACE. SKIN VERY DRY AND FLAKY. REDNESS TO GROIN AND ABDOMENAL FOLDS AND R AXILLA-DESENEX POWDER APPLIED. MORE CHEERFUL THROUGH THE DAY. SPOKE WITH DAUGHTER ON PHONE AND PT DID TOO. EXPRESSING CONCERN ABOUT AND ANIMALS. COULD BE TEARFUL AT TIMES WITH EMOTION RATHER THAN PAIN. REPORTS BLIND IN L EYE. APPETITE GOOD.
[2023-03-28 21:27] VITALS: BP 114/47
[2023-03-29 04:52] VITALS: BP 113/57
--- NOTE | 2023-03-29 05:39 | NUR ---
While in doing patient cares, patient was upset and had said that the day that he called the ambulance to come and get him, he had been in his recliner for 2 weeks and was unable to get up due to the pain in his back. He stated that he had a gun beside his recliner and was going to kill himself that day, due to being unable to care for himself or his . He stated that he fears being away from home at this time due to his using the stove and forgetting it being on, afraid she is going to burn the place down. epic beacon specialistsADITHYA Hays was in the room with me at the time he was saying all of this. Redirection techniques were used. Reported to ADITHYA Little
[2023-03-29 05:45] LABS: Bun/Creatinine Ratio 29.2 (12.0-20.0); Calcium, Blood 8.4 mg/dL (8.5-10.1); Creatinine, Blood 1.3 mg/dL (0.60-1.20); Potassium, Blood 2.6 mmol/L (3.5-5.5)
--- NOTE | 2023-03-29 06:55 | NUR ---
PATIENT IS ALERT AND ORIENTED X3. ON ROOM AIR AND TELE. WITH IV LINE ON LEFT AC WITH ONGOING IV FLUIDS NSS 1 L AT 100 ML/HR. BOGGY HEEL AND SWELLING FEET. NEED ATTENDED. COMPLAINT OF BACK PAIN, ADMINISTERED MUSCLE RELAXANT AND PAIN MEDICATION. ABLE TO SLEEP. WILL CONTINUE TO MONITOR.
--- NOTE | 2023-03-29 07:30 | NUR ---
PATIENT STATED THAT HE HAS A GUN AT HOME AND SAID "I SHOULD HAVE PULLED THE TRIGGER", SO STATED THAT HE IS NOT SAFE AT HOME DUE TO HIS HAS A DEMENTIA. I ENCOURAGED THE PATIENT TO HAVE A POSITIVE MIND INSPITE OF HIS HEALTH ISSUES.
[2023-03-29 08:40] VITALS: BP 117/60
[2023-03-29 15:33] VITALS: BP 101/76
--- NOTE | 2023-03-29 17:48 | NUR ---
PT IS A/OX4, PLEASANT AND COOPERATIVE, IN GOOD SPIRITS. THE NPT IS BAD REST. REPOSITIONED FOR COMFORT. PT WAS MEDICATED FOR BACK PAIN T/O THE DAY. A HEATING PAD WAS APPLIED TO THE PTS LOW BACK. PT WAS GIVEN A BED BATH TODAY. ANTI FUNGAL POWDER APPLIED TO PAINIS AND GROIN AREA. LOTION APPLIED TP THE PTS BLE'S. CALL LIGHT IN REACH. PT DENIED ANY C/P, N/V OR SOB
[2023-03-29 19:40] VITALS: BP 140/76
[2023-03-30 03:10] VITALS: BP 129/74
[2023-03-30 06:29] LABS: Bun/Creatinine Ratio 19.8 (12.0-20.0); Calcium, Blood 8.2 mg/dL (8.5-10.1); Creatinine, Blood 1.21 mg/dL (0.60-1.20); Magnesium, Blood 2.3 mg/dL (1.6-2.4); Potassium, Blood 3.2 mmol/L (3.5-5.5)
--- NOTE | 2023-03-30 06:45 | NUR ---
PATIENT IS ALERT AND ORIENTED, WITH ONGOING IV FLUIDS OF NSS 1 L AT 100 ML/HR INFUSING WELL AFTER IV REINSERTION DONE BY RAQUEL FERGUSON RN. HE IS TAKING HIS PILLS WITH APPLE SAUCE WITH ANY ISSUE. WITH BOGGY HEEL AND PROTECTOR. NEEDS ATTENDED. MEDICATED WITH PAIN RELIEVER AND MUSCLE RELAXANT. ABLE TO PEE USING A URINAL A FEW MINUTES AGO. CALL LIGHT WITHIN PATIENT'S REACH. WILL CONTINUE TO MONITOR.
[2023-03-30 07:39] VITALS: BP 105/51
[2023-03-30 16:23] VITALS: BP 128/103
[2023-03-30 17:30] VITALS: BP 140/76
--- NOTE | 2023-03-30 17:55 | NUR ---
SHIFT SUMMARY: PATIENT A/OX3, CALM, PLEASANT AND COOPERATIVE c CARE. PATIENT DENIES CP/PRESSURE, SOB, N/V AND DIZZINESS. PATIENT ON TELE, SR HR IN THE 70'S BPM. EDEMA TO BUE/BLE'S. PATIENT ON RA c SPO2 IN THE HIGH 90'S, LUNGS COARSE/DIM T/O TO AUSCULTATION. PATIENT REPORTS PAIN 5-9/10 TO BACK, MEDICATED c SCHEDULED AND PRN PAIN MEDS c MODERATE EFFECT. DR. ZAMARRIPA PLACED ADDITIONAL PAIN MEDS (FENTANYL PATCH), PLACED TO R LOWER BACK. PATIENT WORK c PT THIS AM. PT RECOMMENDED SNF, AT FIRST PATIENT DECLINED. PER PATIENT "I HAVE A WHO IS 87 YO AND LIVES ALONE AT HOME AND I'M WORRIED TO LIVE HER BY HERSELF." BUSINESS TRANSFORMATION MANAGERJASSON NOTIFIED DR. ZAMARRIPA c THE REFUSAL. DR. ZAMARRIPA CAME AND SPOKE c THE PATIENT THIS PM. PER DR. ZAMARRIPA PATIENT IS AGREEABLE TO GO TO SNF. PATIENT ABLE TO SIT UP IN THE RECLINER CHAIR FOR ABOUT 7 HRS, TOLERATED WELL AND TRANSFERRED BACK TO BED c 1 ASSIST, GAIBANITA AND FWW. PATIENT K THIS AM, 3.2, RECEIVED PO K CHL PER ORDER AND SCHEDULED MEDS PER EMAR. PATIENT IS CONTIN/INCON OF BLADDER, ATTENDS PLACED AND USES URINAL c ASSISTANCE. VITAL SIGNS REVIEWED. PIV TO RAC SALINE LOCKED. BED ALARM ON FOR SAFETY. CALL LIGHT IN REACH.
[2023-03-30 20:05] VITALS: BP 120/64
[2023-03-31 03:24] VITALS: BP 119/81
--- NOTE | 2023-03-31 05:44 | NUR ---
SUMMARY- NO NEW ISSUES NOTED. PT BRIEF CHANGED NEEDED. PT DOES USE URINAL. PT CONTINUES TO HAVE ISSUES WITH BACK PAIN. PT RESPONDED WELL TO ORDERED PAIN TX. PT DENIES SOB OR CX PAIN. PT HAS BEEN ABLE TO SLEEP SOME THIS SHIFT. PT CURRENTLY SLEEPING IN NO DISTRESS. CALL LIGHT IN REACH.
[2023-03-31 06:44] LABS: Bun/Creatinine Ratio 19.1 (12.0-20.0); Calcium, Blood 8.5 mg/dL (8.5-10.1); Creatinine, Blood 1.1 mg/dL (0.60-1.20)
[2023-03-31 07:48] VITALS: BP 90/78
[2023-03-31 09:30] VITALS: BP 118/68
[2023-03-31 15:50] VITALS: BP 131/66
--- NOTE | 2023-03-31 16:26 | NUR ---
SHIFT SUMMARY: NO NEW CHANGES IN PATIENT CONDITION THIS SHIFT. PATIENT CONTINUES TO REPORTS PAIN 4-7/10 TO BACK, MEDICATED c SCHEDULED/PRN PAIN MEDS AND MUSCLE RELAXER c GOOD EFFECT. PATIENT DENIES CP/PRESSURE, SOB, N/V AND DIZZINESS. PATIENT ABLE TO SIT UP IN THE RECLINER CHAIR FOR ABOUT 3 HRS TODAY AND WORK c PT IN THE CHAIR, TOLERATED WELL. PATIENT HAS EXCELLENT APPETITE, CONTIN/INCON OF BLADDER, ATTENDS PLACED AND USES URINAL c ASSISTANCE. PATIENT RECEIVED OT DOSE OF MOM AND COLACE PER ORDER c NO RESULT SO FAR THIS SHIFT. PATIENT STILL ON TELE, SR HR IN THE 80'S BPM. PATIENT RECEIVED SCHEDULED MEDS PER EMAR. VITAL SIGNS REVIEWED. BED ALARM ON FOR SAFETY. CALL LIGHT IN REACH.
[2023-03-31 20:16] VITALS: BP 146/94
--- NOTE | 2023-04-01 05:28 | NUR ---
SHIFT SUMMARY PT A&O, CALM AND COOPERATIVE WITH CARE. TELEMETRY: SR 80S. DENIES ANY CP OR PRESSURE. ENAHANCED PRECAUTIONS DUE TO COVID. PT CONTINENT/INCONTINENT. USES URINAL IN BED WITH ASSISTANCE. COMPLAINS OF CHRON BACK BACK. GAVE SCHEDULED MEDS PLUS PRN PAIN MEDS X1. SEE EMAR. VITAL SIGNS REVEIWED. PT RESPOSITIONED NEEDED. BED KEPT IN LOWEST POSITION WITH CALL LIGHT IN REACH. WILL CONTINUE TO MONITOR.
[2023-04-01 06:08] VITALS: BP 102/77
[2023-04-01 06:59] LABS: Bun/Creatinine Ratio 15.5 (12.0-20.0); Calcium, Blood 8.6 mg/dL (8.5-10.1); Creatinine, Blood 1.1 mg/dL (0.60-1.20); Potassium, Blood 3.6 mmol/L (3.5-5.5)
[2023-04-01 08:28] VITALS: BP 112/65
[2023-04-01 15:06] VITALS: BP 130/81
--- NOTE | 2023-04-01 17:24 | NUR ---
SHIFT SUMMARY: PATIENT A/OX3, PLEASANT AND COOPERATIVE c CARE. PATIENT CONTINUES TO REPORTS PAIN 4-7/10 TO BACK, MEDICATED c SCHEDULED/PRN PAIN MEDS AND FLEXERIL c ADEQUATE EFFECT. PATIENT STILL NO BM THIS SHIFT, TRIED SITTING UP TO BS FOR ABOUT 10 MINS c NO RESULT. PATIENT REPORTS "I HAVE BEEN PASSING GAS ALL DAY TODAY." PATIENT RECEIVED SCHEDULED BOWEL REGIMEN PER EMAR. PATIENT ON TELE, SR/ST HR RANGES 80'S-120'S BPM. PATIENT UP IN THE RECLINER CHAIR FOR ABOUT 5 HRS THIS SHIFT. PATIENT ON RA, NONPRODUCTIVE COUGH AND LUNGS STILL COARSE/DIM TO AUSCULTATION. PATIENT RECEIVED SCHEDULED MEDS PER EMAR. VITAL SIGNS REVIEWED. PIV TO RAC SALINE LOCKED. BED ALARM ON FOR SAFETY. CALL LIGHT IN REACH.
[2023-04-01 19:27] VITALS: BP 144/75
[2023-04-02 03:26] VITALS: BP 137/66
--- NOTE | 2023-04-02 04:24 | NUR ---
NOTE PT AWAKE. USING CALL LIGHT. ROUTINE BOWEL CARE GIVEN. SMEAR OF BM AND FREQUNET FLATUS REPORTED. MULPILE HEAVILY SATURATED ATTENDS. URINE STRONG ODOR DES. TRIALED A CONDOM CATHETER. DID NOT STAY ON PT PENIS. IT IS VERY UNCOMFORTABLE FOR PT TO TURN SIDE TO SIDE TO BE CLEANED UP. VSS. DRINKING WELL. CARE MOR OING.
[2023-04-02 07:48] VITALS: BP 118/59
[2023-04-02 16:02] VITALS: BP 107/56
--- NOTE | 2023-04-02 16:48 | NUR ---
SHIFT SUMMARY: PAIN MANAGEMENT IS A CHALLENGE FOR THIS PATIENT. CRIED OUT IN PAIN SEVERAL TIMES TODAY, REPOSITIONED HE WOULD ALLOW. THIS AUTHOR PLACED NEW PALLIATIVE CARE CONSULT TO PERHAPS HELP WITH SYMPTOM MANAGEMENT IN ADDITION TO PAIN MEDS GIVEN PER EMAR. NO EVENTS ON TELEMETRY, SR 90-110 WITH FIRST DEGREE BLOCK. ON ROOM AIR, OCC DIRECTOR CORPORATE COMMUNICATIONS [place], FLUTTER VALVE GIVEN. GOT UP TO [facility]SC WITH PHYSICAL THERAPY BUT IT WAS DIFFICULT TO GET PT BTB WITH TWO NURSING STAFF, IS VERY DECONDITIONED, DYSPNEIC, AND PAINFUL WITH MOVEMENT. MOSTLY INCONTINENT, ATTENDS IN PLACE. BOWEL MEDS GIVEN WITH VERY SMALL RESULT, IS PASSING GAS. PLAN IS SNF FOR REHAB.
[2023-04-02 19:46] VITALS: BP 151/104
[2023-04-03 04:00] VITALS: BP 125/62
--- NOTE | 2023-04-03 06:36 | NUR ---
Shift Summary Coarse lungs with hacking productive cough. Pt has very painful back and painful neck, back is much worse duing patient care. Repositioned him PRN for comfort, positioning him on his side with one pillow under the opposite shoulder provided the best comfort. No BM this shift, only a smear. Pt states he has had no substantial BM for 2 weeks. Scheduled bowel meds given, daily PRN bowel meds are timed for the day. No events on telemetry. Mostly incontinent although he did void in the urinal once. On RA with O2 Sat > 92%.
[2023-04-03 07:50] VITALS: BP 103/64
[2023-04-03 15:41] VITALS: BP 144/68
--- NOTE | 2023-04-03 16:06 | NUR ---
SHIFT SUMMARY: NO ACUTE EVENTS. NO EVENTS ON TELEMETRY, SR 89-100'S. PAIN IS MUCH BETTER CONTROLLED TODAY, ABLE TO TRANSFER TO RECLINER WITH MIN ASSIST. ASSOCIATE PROFESSOR OF CRIMINAL JUSTICE COUGH, ROOM AIR. CHRONIC BACK PAIN; HAS FENTANYL PATCH ON L UPPER ARM AND IS RECEIVING OXYCONTIN SCHEDULED. WAS WORRIED ABOUT HIS TODAY HE STATES SHE IS HOME ALONE AND IS CONFUSED. PLAN IS FOR SNF FOR REHAB AFTER COVID QUARANTINE COMPLETE.
[2023-04-03 19:18] VITALS: BP 105/49
[2023-04-04 02:45] VITALS: BP 106/63
--- NOTE | 2023-04-04 06:19 | NUR ---
Shift Summary Pt back pain well controlled through scheduled medications only, no requests for PRNs tonight. Pt tolerated pt care better tonight with less pain. On tele, no events. Slept well t/o most of the night. AOx4, cooperative with care. Plan to D/C to SNF for rehab then eventual back surgery per report.
[2023-04-04 07:56] VITALS: BP 139/81
[2023-04-04 16:10] VITALS: BP 84/46
--- NOTE | 2023-04-04 19:48 | NUR ---
NO ACUTE CHANGES. AWAITING PLACEMENT. ALERT AND ORIENTED X4. ABLE TO MAKE NEEDS KNOWN. PAIN TREATED PER EMAR. COUGH IS HARSH AND LUNG COURSE. ASSIST TO SIT AT BEDSIDE.
[2023-04-05 03:36] VITALS: BP 117/60
--- NOTE | 2023-04-05 05:30 | NUR ---
SHIFT SUMMARY: PT IS ADMITTED FOR COVID AND IS FULL CODE. IS ALERT AND ABLE TO MAKE MOST NEEDS KNOWN. ADLs HAVE BEEN 1-2P DEPENDING ON ACTIVITY. IN ON ENHANCED ISO R/T COVID. STATED EARLY IN SHIFT HE HAD SOME PAIN TO COCCYX BUT WAS ABLE TO RELIEF PAIN WITH POSITIONING THROUGH MOST OF THE NIGHT. BUT WAS GIVEN PRN PAIN MANAGEMENT X1. GODFREY REPORTS 1ST DEG BLOCK BUT SINUS @ 93.
[2023-04-05 07:27] VITALS: BP 146/94
[2023-04-05 17:11] VITALS: BP 108/57
--- NOTE | 2023-04-05 17:58 | NUR ---
PER BRITANY PALMA TO DISCONTINUE TELE. PER IRRIGATION INSTALLATION SPECIALIST, NO EVENTS FOR SEVERAL DAYS
--- NOTE | 2023-04-05 18:05 | NUR ---
NO ACUTE CHANGES. PSYCH CONSULT COMPLETE. TELE DISCONTINUED. PT SAT UP TO SIDE OF BED WITHOUT ASSISTANCE. PAIN INTERFERES WITH ABILITY TO REPOSITION. HACKING COUGH CONTINUES. PT STATES PRODUCTIVE. R/A. ABLE TO MAKE NEEDS KNOWN. BED IS IN THE LOWEST POSITION WITH CALL LIGHT IN REACH. PT EDUCATED ON FALL RISK AND IMPORTANCE IN CALLING FOR STAFF BEFORE ATTEMPTING TO STAND.
[2023-04-05 20:12] VITALS: BP 128/56
--- NOTE | 2023-04-06 04:17 | NUR ---
SHIFT SUMMARY: PT IS ADMITTED FOR COVID AND IS A FULL CODE. IS ALERT AND ABLE TO MAKE NEEDS KNOWN. ADLs HAVE BEEN 1-2P DEPENDING ON ACTIVITY. IS ON ENHANCED ISO FOR COVID. DENIES PAIN OR DISCOMFORT WHEN ASKED. BUT DOES GET ROUTINE PAIN MANAGEMENT.
[2023-04-06 08:10] VITALS: BP 107/77
--- NOTE | 2023-04-06 17:17 | NUR ---
DC HOME WITH HH W/NURSING & PT WRITTEN & VERBAL DC INSTRUCTIONS GIVEN TO PT WITH FRIEND PRESENT, BOTH VERBALIZED GOOD UNDERSTANDING. ALL CONCERNS & QUESTIONS ADDRESSED. IT WAS RECOMMENDED THAT PT GO TO REHAB BEFORE GOING HOME BUT PT REFUSED. PIV DC'D WITH CATH TIP INTACT, NO REDNESS OR SWELLING NOTED. NO NEW MED SCRIPTS TO FAX TO PHARM. PT TO PV VIA W/C WITH ALL PERSONAL BELONGINGS.
== END 2023-04-06 17:16 | disposition home health service (06) | DRG 177 ==
LOC: ER 15:03 → MEDS 15:04 → ERHOLD 15:04 → MEDS 21:08 → ENPENDDIS 04-06 13:24 → MEDS 04-06 17:16
PROVIDERS: Emergency Medicine; Internal Medicine; Nurse Practitioner Acute Care; ADMIT Internal Medicine
DX: U07.1 COVID-19 (principal); I21.A1 Myocardial infarction type 2; E87.1 Hypo-osmolality and hyponatremia; N17.9 Acute kidney failure, unspecified; F02.811 Dementia in other diseases classified elsewhere, unspecified severity, with agitation; N40.0 Benign prostatic hyperplasia without lower urinary tract symptoms; E87.6 Hypokalemia; G20.A1 Parkinson's disease without dyskinesia, without mention of fluctuations; I48.0 Paroxysmal atrial fibrillation; I25.10 Atherosclerotic heart disease of native coronary artery without angina pectoris; M54.9 Dorsalgia, unspecified; G89.29 Other chronic pain; K21.9 Gastro-esophageal reflux disease without esophagitis; I11.0 Hypertensive heart disease with heart failure; I50.9 Heart failure, unspecified; M19.90 Unspecified osteoarthritis, unspecified site; E86.0 Dehydration; F32.A Depression, unspecified; J44.9 Chronic obstructive pulmonary disease, unspecified; E78.00 Pure hypercholesterolemia, unspecified; E86.1 Hypovolemia; Z95.1 Presence of aortocoronary bypass graft; Z86.718 Personal history of other venous thrombosis and embolism; Z79.891 Long term (current) use of opiate analgesic; Z79.01 Long term (current) use of anticoagulants; Z79.899 Other long term (current) drug therapy; Z85.118 Personal history of other malignant neoplasm of bronchus and lung; Z86.711 Personal history of pulmonary embolism; I25.2 Old myocardial infarction; Z98.890 Other specified postprocedural states; Z87.891 Personal history of nicotine dependence; Z89.022 Acquired absence of left finger(s)
CPT/HCPCS: 0241U; 36415; 71045; 80048; 80053; 82550; 83735; 83880; 84132; 84484; 85025; 93005; 93010; 94640; 94664; 96365; 96366; 96376; 97110; 97116; 97162; 97530; 99285-25; A9270; G0378; J3480; J7030; J7050

== ENCOUNTER 2023-04-30 08:30 | Inpatient (IN) | payer OTHER ==
[~2023-04-30] VITALS: Ht 177.8 cm; Wt 127.2 kg
[~2023-04-30 08:30] MED LIST changes: +ALPR.5 PO; +BUME2 PO; +CALC.25 PO; +GABA400 PO; +ISOSORBIDE MONO10 MG PO; +METO5 PO; +OXYCONTIN20 M1 PO; +POTA10T PO
[2023-04-30] MEDS ORDERED: NS 1,000 ML IV SCH ×2 (08:35→13:50)
[2023-04-30 09:24] LABS: BASOPHILS ABSOLUTE AUTO 0.04 K/mm3 (0.00-0.23); BASOPHILS PERCENT AUTO 0 % (0-2); EOSINOPHILS PERCENT AUTO 1 % (0-6); Hematocrit 46.3 % (37.0-53.0); Hemoglobin 16.5 g/dL (13.5-17.5); IMMATURE GRAN ABSOLUTE AUTO 0.05 K/mm3 (0.00-0.10); IMMATURE GRAN PERCENT AUTO 0 % (0-1); LYMPHOCYTES ABSOLUTE AUTO 2.57 K/mm3 (0.84-5.20); LYMPHOCYTES PERCENT AUTO 22 % (21-46); MONOCYTES ABSOLUTE AUTO 1.04 K/mm3 (0.16-1.47); MONOCYTES PERCENT AUTO 9 % (4-13); Mean Corpuscular HGB Conc 35.6 g/dL (31.5-36.5); Mean Corpuscular Volume 90 fL (80-100); Mean Platelet Volume 10.2 fL (9.1-12.4); NEUTROPHILS ABSOLUTE AUTO 7.93 K/mm3 (1.96-9.15); NEUTROPHILS PERCENT AUTO 68 % (41-73); Platelet Count 256 K/mm3 (150-400); Red Blood Cell Count 5.16 M/mm3 (4.30-5.90); White Blood Cell Count 11.73 K/mm3 (4.00-11.30)
[2023-04-30 11:26] LABS: Albumin, Blood 2.9 g/dL (3.4-5.0); Albumin/Globulin Ratio 0.7 (0.8-1.8); Bilirubin, Total 1.1 mg/dL (0.1-1.0); Bun/Creatinine Ratio 47.4 (12.0-20.0); Calcium, Blood 8.4 mg/dL (8.5-10.1); Creatinine, Blood 1.73 mg/dL (0.60-1.20); Globulin, Blood 4.3 g/dL (2.2-4.0); Potassium, Blood 2.6 mmol/L (3.5-5.5); Total Protein, Blood 7.2 g/dL (6.4-8.2)
--- NOTE | 2023-04-30 13:31 | NUR ---
pt very disheveled, multiple bruises and abrasions. very poor oral hydration. he states multiple falls. pt being admitted review with him his wishes and needs. He still does not want cpr or intubation. he want limited treatment. PT made DNR, he will weare a bipap or trillogy just no intubation, dialysis or life support. Pt may be getting colser to end of life will continue to monitor. filled out new polst will have pt and physician sign when he leaves ER.
[2023-04-30] MEDS ORDERED: Potassium Chloride 20 MEQ/15 ML UDC PO ONE (13:50)
[2023-04-30] MEDS ORDERED: Ondansetron HCl 2 MG / ML 2ML Vial IV PRN (13:50)
[2023-04-30] MEDS ORDERED: FLU VACC QS2023-24(6MOS UP)/PF 60 MCG/0.5 ML SYRINGE IM SCH (13:50)
[2023-04-30] MEDS ORDERED: Acetaminophen 325 MG TABLET PO PRN (13:55)
[2023-04-30] MEDS ORDERED: Potassium Chloride 40 MEQ in NS 250 ML IV ONE (14:00)
[2023-04-30 14:12] LABS: Magnesium, Blood 2.5 mg/dL (1.6-2.4)
[2023-04-30] MEDS ORDERED: CYCL10 PO (14:16)
[2023-04-30 14:46] LABS: Source, Urine Clean Catch
[2023-04-30 14:59] LABS: Appearance, Urine Hazy (Clear); Bilirubin, Urine Neg (Neg); Blood, Urine 2+ (Neg); Color, Urine Yellow (P-Yellow); Glucose Qualitative, Urine Neg (Neg); Ketones, Urine Neg (Neg); Leukocyte Esterase, Urine 3+ (Neg); Nitrite, Urine Neg (Neg); Protein, Urine 1+ (Neg); Urobilinogen, Urine NORM (Normal)
[2023-04-30 15:10] LABS: Bacteria Few /hpf; Squamous Epithelial Cells Rare /hpf (Few); White Blood Cells, Urine 50-100 /hpf (0-5)
[2023-04-30] MEDS ORDERED: BUME2 PO (15:20)
[2023-04-30] MEDS ORDERED: FentaNYL Citrate 50 MCG/ML 2 ML Injection IV PRN (15:25)
[2023-04-30] MEDS ORDERED: OxyCODONE 10/Acetamin 325 TABLET PO PRN (15:35)
[2023-04-30 16:12] VITALS: BP 131/110
[2023-04-30 16:26] LABS: Influenza A, PCR NEGATIVE (NEGATIVE); Influenza B, PCR NEGATIVE (NEGATIVE); Resp Syncytial Virus, PCR NEGATIVE (NEGATIVE)
--- NOTE | 2023-04-30 16:48 | NUR ---
ARRIVAL/SHIFT SUMMARY: PT ARRIVED TO MEDICAL FLOOR @1550 VIA GURNEY WITH AND CAREGIVER. POTASSIUM CHLORIDE AND NS INFUSING IN LHA IV. PT UNABLE TO TOLERATE LYING FLAT ON BACK FOR ANY AMOUNT OF TIME. PT HAS MULTIPLE SKIN ISSUES INCLUDING SKIN TEARS ON BILAT ARMS, SCATTERED BRUISING, DISCOLORATIONS, SCARS, AND REDNESS. WOUNDS CLEANED AND MEPILEX APPLIED TO BOTTOM AND BILAT FOREARMS. PT ARRIVED WITH 2L NS. INCREASED PT TO 3L DUE TO 02 SATS IN HIGH 80'S. PT STATES HE HAS 4-5 FALLS AT HOME A WEEK. PT CURRENTLY HAS HOME HEALTH, PT/OT ORDERS IN PLACE. PT CURRENTLY RESTING COMFORTABLY. URINAL AT BEDSIDE. CALL LIGHT IN REACH. BED IN LOWEST POSITION. NO PAIN AT THIS TIME.
[2023-04-30] MEDS ORDERED: Levodopa/Carbidopa 100 / 10 MG Tab PO SCH (17:00)
[2023-04-30] MEDS ORDERED: Rivaroxaban 10 MG Tab PO SCH (18:00)
[2023-04-30 18:19] LABS: SARS-Cov-2 (COVID-19) PCR, MMC POSITIVE (NEGATIVE)
[2023-04-30 19:34] VITALS: BP 126/86
[2023-04-30] MEDS ORDERED: Polyethylene Glycol 3350 17 gm PO SCH (21:00)
[2023-04-30] MEDS ORDERED: Docusate Sodium 100 MG Cap PO SCH (21:00)
[2023-04-30] MEDS ORDERED: Isosorbide Mononitrate 20 MG TAB PO SCH (21:00)
[2023-04-30] MEDS ORDERED: OxyCODONE HCL 20 MG TABCR PO SCH (21:00)
[2023-04-30] MEDS ORDERED: Tamsulosin HCl 0.4 MG Cap PO SCH (21:00)
[2023-04-30] MEDS ORDERED: Gabapentin 100 MG Cap PO SCH (21:00)
--- NOTE | 2023-05-01 03:11 | NUR ---
05/01/23 0020 HOSPITALIST, DR. ANDINO NOTIFIED OF TROPONINE OF 167. NO NEW ORDERS. WILL CONTINUE TO MONITOR PATIENT.
[2023-05-01 04:30] VITALS: BP 130/83
[2023-05-01 05:22] LABS: Hematocrit 41.7 % (37.0-53.0); Hemoglobin 14.5 g/dL (13.5-17.5); Mean Corpuscular HGB 32.1 pg (26.0-34.0); Mean Corpuscular HGB Conc 34.8 g/dL (31.5-36.5); Mean Corpuscular Volume 92 fL (80-100); Mean Platelet Volume 10.1 fL (9.1-12.4); Platelet Count 204 K/mm3 (150-400); RDW Coefficient Variation 14.1 % (11.7-14.2); RDW Standard Deviation 47.8 fL (35.1-46.3); Red Blood Cell Count 4.52 M/mm3 (4.30-5.90); White Blood Cell Count 10.09 K/mm3 (4.00-11.30)
[2023-05-01 07:00] LABS: Bun/Creatinine Ratio 40.8 (12.0-20.0); Calcium, Blood 8.6 mg/dL (8.5-10.1); Creatinine, Blood 1.57 mg/dL (0.60-1.20); Potassium, Blood 2.1 mmol/L (3.5-5.5)
[2023-05-01] MEDS ORDERED: Potassium Chloride 20 MEQ/15 ML UDC PO ONE ×2 (08:00→12:55)
[2023-05-01] MEDS ORDERED: Miconazole Nitrate 2% 85 GM PWD TOP SCH (08:00)
[2023-05-01 08:08] VITALS: BP 122/68
--- NOTE | 2023-05-01 08:16 | NUR ---
RN shift summary: Patient is alert and oriented. He has back pain and it is difficult for him to be moved or to lay the HOB down. Pt uses the urinal but struggles and often spills it. Bed linens changed x2. Pt has skin issues, bruises, sccrapes and scabs. Pt has yeast under abdomenal fold and groin. Medicated powder ordered. Pt has slept on and off between cares. Pt gets scheduled pain meds and they have been effective. Pt is on bedrest. Fell yesterday at home before admit. O2 3 liters, course breath sounds in bases. Pt does moan at times, states he had a bad dream. Uses call light effectively. Report given to day shift.
[2023-05-01] MEDS ORDERED: Bisacodyl 10 MG Supp PR PRN (09:20)
[2023-05-01 12:48] LABS: Albumin, Blood 2.7 g/dL (3.4-5.0); Anion Gap 5 mmol/L (6-16); Blood Urea Nitrogen 55 mg/dL (8-24); Bun/Creatinine Ratio 38.5 (12.0-20.0); CO2, Blood 42 mmol/L (21-32); Calcium, Blood 8.5 mg/dL (8.5-10.1); Chloride, Blood 80 mmol/L (98-108); Creatinine, Blood 1.43 mg/dL (0.60-1.20); Glomerular Filtration Rate 48 (60-); Glucose, Blood 134 mg/dL (70-99); Phosphorus, Blood 1.9 mg/dL (2.5-4.9); Potassium, Blood 2.3 mmol/L (3.5-5.5); Sodium, Blood 127 mmol/L (136-145)
[2023-05-01 16:55] VITALS: BP 83/60
--- NOTE | 2023-05-01 18:31 | NUR ---
SHIFT SUMMARY: PT A&O X4. PLEASANT AND COOPERATIVE WITH CARE. PT HAD CRITICAL POTASSIUM LEVEL OF 2.1 THIS AM. 20MEQ ELIXER GIVEN AND WENT UP TO 2.3. DR. RUIZ NOTIFIED AND ORDERED 40MEQ ELIXER. PT HAD RAPID COVID COMPLETED TODAY WITH A NEGATIVE COVID RESULT. PT TAKEN OFF OF ENHANCED PRECAUTIONS. PT C/O SEVERE BACK PAIN THIS SHIFT. MEDICATED PER EMAR AND REPOSITIONED BEST PT WOULD ALLOW. PT RECEIVED ECHO THIS SHIFT. RESULTS GENERATED IN CHART. PT/OT UNABLE TO WORK WITH PT TODAY D/T LOW POTASSIUM LEVELS. PT STATES HE HAS NOT HAD BOWEL MOVEMENT IN WEEKS. SCHEDULED BOWEL MEDICATIONS PROVIDED. PRN MEDS ORDERED. CALL LIGHT IN REACH. BED IN LOWEST POSITION. WILL REPORT TO ONCOMING RN.
[2023-05-01 19:23] VITALS: BP 102/50
[2023-05-01] MEDS ORDERED: Sennosides 8.6 MG Tab PO SCH (21:00)
--- NOTE | 2023-05-02 05:10 | NUR ---
SHIFT SUMMARY NOC PT A/O X 4. PLEASANT AND COOPERATIVE WITH CARE. INC OF URINE X 3, ATTENDS AND EXTRA PAD IN PLACE. ON O2 2L/NC SPO2 > 92%. PT CHRONIC BACK PAIN BEING MANAGED WITH SCHEDULED/PRN PAIN RX. PT HAS MEPILEX IN PLACE ON COCCYX FOR EXCORIATION C/D/I. POWDER PLACED IN GROIN/PANNUS/R UNDERARM FOR YEAST REDNESS. PT IS CURRENTLY RESTING WITH BED IN LOWEST POSITION, AND CALL LIGHT WITHIN REACH.
[2023-05-02 05:19] LABS: BASOPHILS ABSOLUTE AUTO 0.05 K/mm3 (0.00-0.23); BASOPHILS PERCENT AUTO 1 % (0-2); EOSINOPHILS ABSOLUTE AUTO 0.42 K/mm3 (0.00-0.68); EOSINOPHILS PERCENT AUTO 4 % (0-6); Hematocrit 40.3 % (37.0-53.0); Hemoglobin 13.8 g/dL (13.5-17.5); IMMATURE GRAN ABSOLUTE AUTO 0.02 K/mm3 (0.00-0.10); IMMATURE GRAN PERCENT AUTO 0 % (0-1); LYMPHOCYTES ABSOLUTE AUTO 2.38 K/mm3 (0.84-5.20); LYMPHOCYTES PERCENT AUTO 25 % (21-46); MONOCYTES ABSOLUTE AUTO 0.96 K/mm3 (0.16-1.47); MONOCYTES PERCENT AUTO 10 % (4-13); Mean Corpuscular HGB 32.1 pg (26.0-34.0); Mean Corpuscular HGB Conc 34.2 g/dL (31.5-36.5); Mean Corpuscular Volume 94 fL (80-100); Mean Platelet Volume 10.1 fL (9.1-12.4); NEUTROPHILS ABSOLUTE AUTO 5.83 K/mm3 (1.96-9.15); NEUTROPHILS PERCENT AUTO 61 % (41-73); Platelet Count 189 K/mm3 (150-400); RDW Standard Deviation 47.5 fL (35.1-46.3); White Blood Cell Count 9.66 K/mm3 (4.00-11.30)
[2023-05-02 05:26] VITALS: BP 106/64
[2023-05-02 05:57] LABS: Albumin, Blood 2.8 g/dL (3.4-5.0); Anion Gap 6 mmol/L (6-16); Blood Urea Nitrogen 47 mg/dL (8-24); Bun/Creatinine Ratio 33.1 (12.0-20.0); CO2, Blood 42 mmol/L (21-32); Calcium, Blood 8.8 mg/dL (8.5-10.1); Chloride, Blood 80 mmol/L (98-108); Creatinine, Blood 1.42 mg/dL (0.60-1.20); Glomerular Filtration Rate 49 (60-); Glucose, Blood 122 mg/dL (70-99); Phosphorus, Blood 2.3 mg/dL (2.5-4.9); Sodium, Blood 128 mmol/L (136-145)
[2023-05-02 05:59] LABS: Potassium, Blood 2.2 mmol/L (3.5-5.5)
[2023-05-02] MEDS ORDERED: Potassium Chloride 40 MEQ in NS 250 ML IV ONE (06:10)
[2023-05-02] MEDS ORDERED: Potassium Chloride 10 Meq Tablet SA PO ONE (06:10)
[2023-05-02] MEDS ORDERED: Potassium Phosphate Dibasic 30 MM in Dextrose 5% 500 ML IV ONE (06:45)
[2023-05-02 07:17] VITALS: BP 147/104
[2023-05-02] MEDS ORDERED: OxyCODONE 10/Acetamin 325 TABLET PO PRN (08:00)
[2023-05-02] MEDS ORDERED: Calcitriol 0.25 MCG Cap PO SCH (09:00)
[2023-05-02 14:01] LABS: Albumin, Blood 3.2 g/dL (3.4-5.0); Anion Gap 5 mmol/L (6-16); Blood Urea Nitrogen 41 mg/dL (8-24); CO2, Blood 43 mmol/L (21-32); Chloride, Blood 80 mmol/L (98-108); Creatinine, Blood 1.52 mg/dL (0.60-1.20); Glomerular Filtration Rate 45 (60-); Glucose, Blood 177 mg/dL (70-99); Phosphorus, Blood 4.2 mg/dL (2.5-4.9); Potassium, Blood 2.9 mmol/L (3.5-5.5); Sodium, Blood 128 mmol/L (136-145)
[2023-05-02] MEDS ORDERED: Potassium Chloride 20 MEQ/15 ML UDC PO SCH (17:00)
--- NOTE | 2023-05-02 18:37 | NUR ---
SHIFT SUMMARY PT AXO, PLEASANT AND COOPERATIVE WITH CARE, UP TO CHAIR WITH PHYSICAL THERAPY. PT REPORTS PAIN RELIEF AFTER SITTING IN CHAIR. MEDICATED FOR PAIN PER EMAR. VSS. NO BM THIS SHIFT. POTASSIUM GIVEN PER EMAR, SEE LABS. NO OTHER CHANGES THIS SHIFT. BED IN LOW POSITION, CALL LIGHT WITHIN REACH. PT 96% ON RA.
[2023-05-02 20:57] VITALS: BP 123/53
[2023-05-03 04:47] VITALS: BP 149/65
[2023-05-03 05:10] LABS: BASOPHILS ABSOLUTE AUTO 0.05 K/mm3 (0.00-0.23); BASOPHILS PERCENT AUTO 1 % (0-2); EOSINOPHILS PERCENT AUTO 4 % (0-6); Hematocrit 41.3 % (37.0-53.0); Hemoglobin 14.3 g/dL (13.5-17.5); IMMATURE GRAN ABSOLUTE AUTO 0.03 K/mm3 (0.00-0.10); IMMATURE GRAN PERCENT AUTO 0 % (0-1); LYMPHOCYTES ABSOLUTE AUTO 2.14 K/mm3 (0.84-5.20); LYMPHOCYTES PERCENT AUTO 23 % (21-46); MONOCYTES ABSOLUTE AUTO 0.81 K/mm3 (0.16-1.47); MONOCYTES PERCENT AUTO 9 % (4-13); Mean Corpuscular HGB Conc 34.6 g/dL (31.5-36.5); Mean Corpuscular Volume 92 fL (80-100); Mean Platelet Volume 9.6 fL (9.1-12.4); NEUTROPHILS ABSOLUTE AUTO 6.09 K/mm3 (1.96-9.15); NEUTROPHILS PERCENT AUTO 64 % (41-73); Platelet Count 191 K/mm3 (150-400); RDW Coefficient Variation 13.8 % (11.7-14.2); RDW Standard Deviation 46.8 fL (35.1-46.3); Red Blood Cell Count 4.47 M/mm3 (4.30-5.90); White Blood Cell Count 9.52 K/mm3 (4.00-11.30)
[2023-05-03 05:53] LABS: Albumin, Blood 2.9 g/dL (3.4-5.0); Anion Gap 7 mmol/L (6-16); Blood Urea Nitrogen 39 mg/dL (8-24); Bun/Creatinine Ratio 25.2 (12.0-20.0); CO2, Blood 39 mmol/L (21-32); Calcium, Blood 9.1 mg/dL (8.5-10.1); Chloride, Blood 83 mmol/L (98-108); Creatinine, Blood 1.55 mg/dL (0.60-1.20); Glomerular Filtration Rate 44 (60-); Glucose, Blood 112 mg/dL (70-99); Magnesium, Blood 2.5 mg/dL (1.6-2.4); Phosphorus, Blood 3.3 mg/dL (2.5-4.9); Potassium, Blood 2.5 mmol/L (3.5-5.5); Sodium, Blood 129 mmol/L (136-145)
[2023-05-03 07:22] VITALS: BP 90/52
--- NOTE | 2023-05-03 07:48 | NUR ---
SHIFT SUMMARY: DOMONIQUE IS A&OX4. VSS, NO ACUTE EVENTS OVERNIGHT. PT CONTINUES TO COMPLAIN OF BACK PAIN, IS ABLE TO TURN AND REPOSITION HIMSELF. OFFERED TO ASSIST PT UP TO THE RECLINER, PT DECLINED. ATTENDS IN PLACE, PT IS TOLERATING PO INTAKE WELL, AND IS MAINTAINING SATS ORA. HE TAKES HIS MEDICATIONS WHOLE IN APPLESAUCE. HE IS LYING IN BED WITH THE CALL LIGHT IN REACH. REPORT WAS GIVEN TO DAY SHIFT RN.
[2023-05-03] MEDS ORDERED: Potassium Chloride 20 MEQ/15 ML UDC PO SCH (08:00)
[2023-05-03] MEDS ORDERED: Gabapentin 300 MG Cap PO SCH (08:45)
[2023-05-03] MEDS ORDERED: Lidocaine 4% 1 Patch TOP SCH (09:00)
[2023-05-03 13:30] LABS: Anion Gap 3 mmol/L (6-16); Blood Urea Nitrogen 41 mg/dL (8-24); Bun/Creatinine Ratio 26.5 (12.0-20.0); CO2, Blood 39 mmol/L (21-32); Calcium, Blood 9.4 mg/dL (8.5-10.1); Chloride, Blood 84 mmol/L (98-108); Creatinine, Blood 1.55 mg/dL (0.60-1.20); Glomerular Filtration Rate 44 (60-); Glucose, Blood 143 mg/dL (70-99); Phosphorus, Blood 2.6 mg/dL (2.5-4.9); Potassium, Blood 3.1 mmol/L (3.5-5.5); Sodium, Blood 126 mmol/L (136-145)
[2023-05-03 17:45] VITALS: BP 197/92
[2023-05-03] MEDS ORDERED: Rivaroxaban 10 MG Tab PO SCH (18:00)
[2023-05-03 18:08] VITALS: BP 120/74
--- NOTE | 2023-05-03 18:23 | NUR ---
MAKES NEEDS KNOWN, WORKED WITH PT TODAY, AND BRIT VISITED, OOB IN CHAIR X2 TODAY, PLEASANT TO CARE EASILY SOB, PATIENT PULLS NC ON AND OFF, SATS 97% ON RA, VERY COARSE RASPY VOICE, CLEARS CONGESTION. USES CALL LIGHT. K 2.5 NOW 3.1 WITH LIQUID REPLACEMENT, CALL LIGHT WITH IN REACH, WILL RELAY TO PM RN
[2023-05-03 19:50] VITALS: BP 111/68
[2023-05-04 03:54] VITALS: BP 107/65
[2023-05-04 05:00] LABS: BASOPHILS ABSOLUTE AUTO 0.06 K/mm3 (0.00-0.23); BASOPHILS PERCENT AUTO 1 % (0-2); EOSINOPHILS ABSOLUTE AUTO 0.45 K/mm3 (0.00-0.68); EOSINOPHILS PERCENT AUTO 5 % (0-6); Hematocrit 41.5 % (37.0-53.0); Hemoglobin 14.2 g/dL (13.5-17.5); IMMATURE GRAN ABSOLUTE AUTO 0.03 K/mm3 (0.00-0.10); IMMATURE GRAN PERCENT AUTO 0 % (0-1); LYMPHOCYTES ABSOLUTE AUTO 2.15 K/mm3 (0.84-5.20); LYMPHOCYTES PERCENT AUTO 25 % (21-46); MONOCYTES ABSOLUTE AUTO 0.68 K/mm3 (0.16-1.47); MONOCYTES PERCENT AUTO 8 % (4-13); Mean Corpuscular HGB 31.9 pg (26.0-34.0); Mean Corpuscular HGB Conc 34.2 g/dL (31.5-36.5); Mean Corpuscular Volume 93 fL (80-100); Mean Platelet Volume 9.5 fL (9.1-12.4); NEUTROPHILS ABSOLUTE AUTO 5.19 K/mm3 (1.96-9.15); NEUTROPHILS PERCENT AUTO 61 % (41-73); Platelet Count 181 K/mm3 (150-400); RDW Standard Deviation 48.3 fL (35.1-46.3); Red Blood Cell Count 4.45 M/mm3 (4.30-5.90); White Blood Cell Count 8.56 K/mm3 (4.00-11.30)
[2023-05-04 05:29] LABS: Albumin, Blood 2.8 g/dL (3.4-5.0); Anion Gap 4 mmol/L (6-16); Blood Urea Nitrogen 34 mg/dL (8-24); Bun/Creatinine Ratio 24.1 (12.0-20.0); CO2, Blood 40 mmol/L (21-32); Calcium, Blood 9.1 mg/dL (8.5-10.1); Chloride, Blood 86 mmol/L (98-108); Creatinine, Blood 1.41 mg/dL (0.60-1.20); Glomerular Filtration Rate 49 (60-); Glucose, Blood 125 mg/dL (70-99); Phosphorus, Blood 2.3 mg/dL (2.5-4.9); Potassium, Blood 2.9 mmol/L (3.5-5.5); Sodium, Blood 130 mmol/L (136-145)
[2023-05-04] MEDS ORDERED: Potassium Phosphate Dibasic 20 MM in NS 500 ML IV STA (05:54)
--- NOTE | 2023-05-04 06:04 | NUR ---
SHIFT SUMMARY: "ILIANA" IS A&OX4. VSS, NO ACUTE EVENTS OVERNIGHT. PT HAS BEEN USING THE O2 PRN, SATS MAINTAINING >90% ORA, PT DOES NOT USE O2 AT BASELINE PER REPORT. ATTENDS IN PLACE, PT HAD A BOWEL MOVEMENT THIS SHIFT, BED BATH AND COMPLETE LINEN CHANGE DONE. HE IS TOLERATING PO INTAKE WELL AND REPORTS ADEQUATE PAIN CONTROL WITH MEDICATIONS PER MAR. PT DID COMPLAIN OF HIS FEET FEELING COLD WHICH HE ATTRIBUTED TO THE NEUROPATHY. APPLICATION OF A WARM BLANKET EASED THE SYMPTOMS PER PT. IVs TO BILATERAL HANDS PATENT. POTASSIUM 2.9 THIS MORNING, REPLACEMENT ORDERED. PT IS LYING IN BED WITH THE CALL LIGHT IN REACH. WILL REPORT TO ONCOMING SHIFT.
[2023-05-04 07:34] VITALS: BP 113/86
[2023-05-04 07:37] VITALS: BP 113/86
[2023-05-04] MEDS ORDERED: Potassium Chloride 20 MEQ/15 ML UDC PO SCH (08:30)
[2023-05-04] MEDS ORDERED: Gabapentin 300 MG Cap PO SCH ×2 (09:00→21:00)
[2023-05-04] MEDS ORDERED: Cyclobenzaprine HCl 10 MG Tab PO ONE (11:00)
[2023-05-04] MEDS ORDERED: Cyclobenzaprine HCl 10 MG Tab PO PRN (11:00)
[2023-05-04 11:02] LABS: SARS-Cov-2 (COVID-19) PCR, MMC POSITIVE (NEGATIVE)
[2023-05-04 12:36] LABS: Albumin, Blood 3.1 g/dL (3.4-5.0); Anion Gap 4 mmol/L (6-16); Blood Urea Nitrogen 32 mg/dL (8-24); Bun/Creatinine Ratio 23.7 (12.0-20.0); CO2, Blood 37 mmol/L (21-32); Calcium, Blood 9.3 mg/dL (8.5-10.1); Chloride, Blood 88 mmol/L (98-108); Creatinine, Blood 1.35 mg/dL (0.60-1.20); Glomerular Filtration Rate 52 (60-); Glucose, Blood 147 mg/dL (70-99); Phosphorus, Blood 2.2 mg/dL (2.5-4.9); Potassium, Blood 3.4 mmol/L (3.5-5.5); Sodium, Blood 129 mmol/L (136-145)
[2023-05-04] MEDS ORDERED: GABA300 PO (13:03)
[2023-05-04] MEDS ORDERED: PERCOCET 10-321 EA13 PO (13:04)
[2023-05-04] MEDS ORDERED: BISA10S PR (13:05)
[2023-05-04] MEDS ORDERED: POTA20LUD PO (13:05)
[2023-05-04] MEDS ORDERED: Acetaminophen650 M1 PO (13:05)
[2023-05-04] MEDS ORDERED: CYCL10 PO (13:06)
[2023-05-04] MEDS ORDERED: DOCU100 PO (13:06)
[2023-05-04] MEDS ORDERED: PAIN RELIEF1 EACH TOP (13:07)
[2023-05-04] MEDS ORDERED: SENNA LAXATIVE8.6 MG PO (13:08)
[2023-05-04] MEDS ORDERED: MIRALAX17 GM PO (13:08)
[2023-05-04] MEDS ORDERED: MICONAZOLE NITR85 GM TOP (13:08)
[2023-05-04] MEDS ORDERED: ONDA4ODT MM (13:08)
[2023-05-04 15:44] VITALS: BP 121/82
--- NOTE | 2023-05-04 17:28 | NUR ---
DAYSHIFT SUMMARY Patient alert & oriented x3. No acute changes this shift, PRN Percocet and flexiril given for pain. Lidocaine patches applied to lower back. Plan to DC tomorrow & got to SNF for rehab. Family updated on plan of care. Vitals stable. Will continue plan of care.
[2023-05-04] MEDS ORDERED: Rivaroxaban 10 MG Tab PO SCH (18:00)
[2023-05-04 19:26] VITALS: BP 103/59
[2023-05-05 03:46] VITALS: BP 130/70
--- NOTE | 2023-05-05 04:32 | NUR ---
PT IS A/OX4, PLEASANT AND COOPERATIVE. THE PT IS UP WITH MODERATE ASSIST. THE PT REMAINED IN THE BED T/O THE NIGHT. PT WAS REPOSITIONED FOR COMFORT. PT WAS MEDICATED FOR CHRONIC BACK PAIN X2 SO FAR THIS SHIFT. A HEATING PAD WAS APPLIED TO THE PTS BACK FOR COMFORT. PTS BILATERAL FOREARM WOUND DRESSINGS WERE CHANGED USEING CLEAN TECHNIQUE. THE RIGHT WOUND WAS VERY ODOROUS. CALL LIGHT IN REACH. BED IN THE LOW POSITION.
[2023-05-05 10:00] VITALS: BP 102/59
--- NOTE | 2023-05-05 14:59 | NUR ---
Patient alert & oriented x4. Plan to discharge to [facility] today, reviewe dplan of care with patient and family. Removed IVs. Vitals stable. Reported given to RN at [facility]. Patient left medical floor at 1415.
== END 2023-05-05 14:43 | DRG 682 ==
LOC: ER 08:30 → MEDS 13:48 → ENPENDDIS 05-04 12:10 → MEDS 05-05 14:43
PROVIDERS: Emergency Medicine; Internal Medicine; ADMIT Internal Medicine
DX: N17.0 Acute kidney failure with tubular necrosis (principal); I21.A1 Myocardial infarction type 2; E87.1 Hypo-osmolality and hyponatremia; I50.32 Chronic diastolic (congestive) heart failure; I48.20 Chronic atrial fibrillation, unspecified; E86.0 Dehydration; E87.6 Hypokalemia; I95.9 Hypotension, unspecified; Z66 Do not resuscitate; J44.9 Chronic obstructive pulmonary disease, unspecified; G62.9 Polyneuropathy, unspecified; G89.29 Other chronic pain; M54.9 Dorsalgia, unspecified; R29.6 Repeated falls; N40.0 Benign prostatic hyperplasia without lower urinary tract symptoms; I25.10 Atherosclerotic heart disease of native coronary artery without angina pectoris; D72.829 Elevated white blood cell count, unspecified; R74.01 Elevation of levels of liver transaminase levels; I11.0 Hypertensive heart disease with heart failure; G20.A1 Parkinson's disease without dyskinesia, without mention of fluctuations; T14.8XXA Other injury of unspecified body region, initial encounter; M19.90 Unspecified osteoarthritis, unspecified site; K59.00 Constipation, unspecified; W18.39XA Other fall on same level, initial encounter; Y92.009 Unspecified place in unspecified non-institutional (private) residence as the place of occurrence of the external cause; E83.39 Other disorders of phosphorus metabolism; Z95.1 Presence of aortocoronary bypass graft; Z86.16 Personal history of COVID-19; Z86.711 Personal history of pulmonary embolism; Z86.718 Personal history of other venous thrombosis and embolism; Z95.828 Presence of other vascular implants and grafts; Z85.118 Personal history of other malignant neoplasm of bronchus and lung; Z79.01 Long term (current) use of anticoagulants; Z79.891 Long term (current) use of opiate analgesic; Z87.891 Personal history of nicotine dependence; Z89.022 Acquired absence of left finger(s); Z11.52 Encounter for screening for COVID-19
CPT/HCPCS: 0241U; 36415; 70450; 71046; 80048; 80053; 80069; 81001; 83735; 83880; 84100; 84484; 85025; 85027; 87077; 87086; 87186; 87426; 87811; 93005; 93010; 96361; 96365; 96375; 97110; 97162; 97165; 97530; 97535; 99285-25; A9270; C8929; J2405; J3010; J3480; J7030; J7040; J7050; J7060; Q9957; U0002

== ENCOUNTER 2023-07-14 00:59 | Emergency (ER) | payer OTHER ==
[~2023-07-14] VITALS: Ht 182.9 cm; Wt 104.3 kg
[~2023-07-14 00:59] MED LIST changes: +Acetaminophen650 M1 PO; +BISA10S PR; +CYCL10 PO; +DOCU100 PO; +GABA300 PO; +MICONAZOLE NITR85 GM TOP; +ONDA4ODT MM; +PAIN RELIEF1 EACH TOP; +PERCOCET 10-321 EA13 PO; +POTA20LUD PO; +SENNA LAXATIVE8.6 MG PO
[2023-07-14] MEDS ORDERED: Diphth,Pertuss(Acell),Tet Vac 0.5 ML VIAL IM ONE (01:15)
[2023-07-14 01:21] LABS: BASOPHILS ABSOLUTE AUTO 0.05 K/mm3 (0.00-0.23); BASOPHILS PERCENT AUTO 0 % (0-2); EOSINOPHILS ABSOLUTE AUTO 0.27 K/mm3 (0.00-0.68); EOSINOPHILS PERCENT AUTO 2 % (0-6); Hematocrit 41.6 % (37.0-53.0); Hemoglobin 14.1 g/dL (13.5-17.5); IMMATURE GRAN ABSOLUTE AUTO 0.05 K/mm3 (0.00-0.10); IMMATURE GRAN PERCENT AUTO 0 % (0-1); LYMPHOCYTES ABSOLUTE AUTO 3.08 K/mm3 (0.84-5.20); LYMPHOCYTES PERCENT AUTO 26 % (21-46); MONOCYTES ABSOLUTE AUTO 0.88 K/mm3 (0.16-1.47); MONOCYTES PERCENT AUTO 7 % (4-13); Mean Corpuscular HGB 31.9 pg (26.0-34.0); Mean Corpuscular HGB Conc 33.9 g/dL (31.5-36.5); Mean Corpuscular Volume 94 fL (80-100); NEUTROPHILS ABSOLUTE AUTO 7.76 K/mm3 (1.96-9.15); NEUTROPHILS PERCENT AUTO 64 % (41-73); Platelet Count 233 K/mm3 (150-400); RDW Coefficient Variation 15.3 % (11.7-14.2); RDW Standard Deviation 52.9 fL (35.1-46.3); Red Blood Cell Count 4.42 M/mm3 (4.30-5.90); White Blood Cell Count 12.09 K/mm3 (4.00-11.30)
[2023-07-14 01:40] VITALS: BP 132/71
[2023-07-14 01:40] LABS: International Normalized Ratio 1.46; Prothrombin Time Results 15.2 Sec (9.7-11.5)
[2023-07-14 01:43] LABS: Albumin, Blood 3.2 g/dL (3.4-5.0); Albumin/Globulin Ratio 0.6 (0.8-1.8); Bilirubin, Total 0.7 mg/dL (0.1-1.0); Bun/Creatinine Ratio 26.6 (12.0-20.0); Calcium, Blood 9.2 mg/dL (8.5-10.1); Creatinine, Blood 1.73 mg/dL (0.60-1.20); Potassium, Blood 3.3 mmol/L (3.5-5.5); Total Protein, Blood 8.2 g/dL (6.4-8.2)
[2023-07-14] MEDS ORDERED: Ventolin/Prove6.7 GM INH (01:51)
[2023-07-14] MEDS ORDERED: ARNUITY ELLIP200 MCG IH (01:51)
[2023-07-14] MEDS ORDERED: STIOLTO RESPIMAT4 G1 IH (01:52)
[2023-07-14] MEDS ORDERED: SPIRONOLACTONE25 MG PO (01:54)
== END 2023-07-14 04:36 | disposition home or self-care (01) ==
LOC: ER 00:59
PROVIDERS: Student in an Organized Health Care Education/Training Program
DX: S01.81XA Laceration without foreign body of other part of head, initial encounter (principal); W07.XXXA Fall from chair, initial encounter; Z87.891 Personal history of nicotine dependence; Z86.711 Personal history of pulmonary embolism; Z79.01 Long term (current) use of anticoagulants; I11.0 Hypertensive heart disease with heart failure; I50.9 Heart failure, unspecified; J44.9 Chronic obstructive pulmonary disease, unspecified; K21.9 Gastro-esophageal reflux disease without esophagitis; I25.2 Old myocardial infarction; Z79.899 Other long term (current) drug therapy; Z23 Encounter for immunization; Z95.1 Presence of aortocoronary bypass graft
CPT/HCPCS: 12014; 36415; 70450; 80053; 85025; 85610; 90471; 90715; 93005; 93010; 99284-25

== ENCOUNTER 2023-10-06 17:18 | Emergency (ER) | payer OTHER ==
[~2023-10-06] VITALS: Ht 182.9 cm; Wt 127.0 kg
[~2023-10-06 17:18] MED LIST changes: +ARNUITY ELLIP200 MCG IH; +SPIRONOLACTONE25 MG PO; +STIOLTO RESPIMAT4 G1 IH; +Ventolin/Prove6.7 GM INH
[2023-10-06 17:25] VITALS: BP 446/67
[2023-10-06] MEDS ORDERED: NS 500 ML IV SCH (17:30)
[2023-10-06 17:38] LABS: BASOPHILS ABSOLUTE AUTO 0.03 K/mm3 (0.00-0.23); BASOPHILS PERCENT AUTO 0 % (0-2); EOSINOPHILS ABSOLUTE AUTO 0.04 K/mm3 (0.00-0.68); EOSINOPHILS PERCENT AUTO 0 % (0-6); Hematocrit 39.8 % (37.0-53.0); IMMATURE GRAN ABSOLUTE AUTO 0.08 K/mm3 (0.00-0.10); IMMATURE GRAN PERCENT AUTO 1 % (0-1); LYMPHOCYTES ABSOLUTE AUTO 3.36 K/mm3 (0.84-5.20); LYMPHOCYTES PERCENT AUTO 30 % (21-46); MONOCYTES ABSOLUTE AUTO 0.81 K/mm3 (0.16-1.47); MONOCYTES PERCENT AUTO 7 % (4-13); Mean Corpuscular HGB 31.5 pg (26.0-34.0); Mean Corpuscular HGB Conc 35.2 g/dL (31.5-36.5); Mean Corpuscular Volume 90 fL (80-100); Mean Platelet Volume 8.7 fL (9.1-12.4); NEUTROPHILS ABSOLUTE AUTO 6.78 K/mm3 (1.96-9.15); NEUTROPHILS PERCENT AUTO 61 % (41-73); Platelet Count 191 K/mm3 (150-400); RDW Coefficient Variation 15.7 % (11.7-14.2); RDW Standard Deviation 50.9 fL (35.1-46.3); Red Blood Cell Count 4.44 M/mm3 (4.30-5.90)
[2023-10-06] MEDS ORDERED: FentaNYL Citrate 50 MCG/ML 2 ML Injection IV ONE (17:45)
[2023-10-06 17:59] LABS: Albumin/Globulin Ratio 0.8 (0.8-1.8); Bilirubin, Total 0.6 mg/dL (0.1-1.0); Bun/Creatinine Ratio 43.4 (12.0-20.0); Calcium, Blood 7.8 mg/dL (8.5-10.1); Creatinine, Blood 1.75 mg/dL (0.60-1.20); Globulin, Blood 3.8 g/dL (2.2-4.0); Potassium, Blood 3.3 mmol/L (3.5-5.5); Total Protein, Blood 6.8 g/dL (6.4-8.2)
== END 2023-10-06 19:12 | disposition home or self-care (01) ==
LOC: ER 17:18
PROVIDERS: Emergency Medicine
DX: T67.01XA Heatstroke and sunstroke, initial encounter (principal); X58.XXXA Exposure to other specified factors, initial encounter; Z51.5 Encounter for palliative care; I25.10 Atherosclerotic heart disease of native coronary artery without angina pectoris; K21.9 Gastro-esophageal reflux disease without esophagitis; I11.0 Hypertensive heart disease with heart failure; I50.9 Heart failure, unspecified; M19.90 Unspecified osteoarthritis, unspecified site; E78.00 Pure hypercholesterolemia, unspecified; I25.2 Old myocardial infarction; Z79.899 Other long term (current) drug therapy; Z87.891 Personal history of nicotine dependence
CPT/HCPCS: 71045; 80053; 83880; 85025; J3010; J7030